=== PATIENT | male | born 1950 | race Caucasian/White ===

== ENCOUNTER → 2017-12-07 | Outpatient (CLI) | payer MEDICARE, OTHER ==
--- NOTE | 2017-12-07 14:21 | US ---
EXAMINATION TYPE: US venous doppler duplex LE BI DATE OF EXAM: 12/07/2017 1:45 PM COMPARISON: NONE CLINICAL HISTORY: I73.9 Peripheral vascular disease, unspecified. Pt states bilat leg swelling and di scoloration SIDE PERFORMED: Bilateral TECHNIQUE: The lower extremity deep venous system is examined utilizing real time linear array sonog rosina with graded compression, doppler sonography and color-flow sonography. VESSELS IMAGED: External Iliac Vein (EIV) Common Femoral Vein Deep Femoral Vein Greater Saphenous Vein * Femoral Vein Popliteal Vein Small Saphenous Vein * Proximal Calf Veins (* superficial vessels) Right Leg: Negative for DVT Left Leg: Negative for DVT IMPRESSION: No evidence for DVT at this time.
== END | disposition home or self-care (01) ==
LOC: RADUSWWP 13:20
PROVIDERS: ATTEND Family Medicine
DX: I73.9 Peripheral vascular disease, unspecified (principal); M79.89 Other specified soft tissue disorders
CPT/HCPCS: 93970

== ENCOUNTER → 2019-11-14 | Outpatient (CLI) | payer MEDICARE | END | disposition home or self-care (01) | LOC: LABWHC1 09:48 | PROVIDERS: ATTEND Family Medicine | DX: Z20.89 Contact with and (suspected) exposure to other communicable diseases (principal) | CPT/HCPCS: U0003; C9803 ==

== ENCOUNTER → 2019-12-13 | Outpatient (CLI) | payer MEDICARE | END | disposition home or self-care (01) | LOC: LABWHC1 07:26 | PROVIDERS: ATTEND Family Medicine | DX: Z11.59 Encounter for screening for other viral diseases (principal) | CPT/HCPCS: U0003; C9803 ==

== ENCOUNTER 2020-02-23 13:20 | Inpatient (IN) | payer MEDICARE ==
[2020-02-23] MEDS ORDERED: SODIUM CHLORIDE 0.9% 500 ML 500 ML IV STA (13:44)
--- NOTE | 2020-02-23 13:47 | ED ---
General Adult HPI - General Chief complaint: Abdominal Pain Stated complaint: Poss Kidney Stone Time Seen by Provider: 02/23/20 13:34 Source: patient, RN notes reviewed, old records reviewed Mode of arrival: ambulatory Limitations: no limitations - History of Present Illness Initial comments: 69-year-old male presenting for left flank pain. Pain is been ongoing for the past 3 or 4 days. He was seen by his primary care physician today, felt to have renal colic he was given intramuscular Toradol and was sent to the emergency department for evaluation. He denies hematuria or dysuria. He states he's had normal bowel movements. He denies vomiting but has had some nausea. No fever. - Related Data Home Medications Medication Instructions Recorded Confirmed Furosemide [Lasix] 40 mg PO DAILY PRN 02/23/20 02/23/20 Levothyroxine Sodium [Synthroid] 75 mcg PO DAILY 02/23/20 02/23/20 Potassium Chloride [Klor-Con 10] 10 meq PO DAILY PRN 02/23/20 02/23/20 Tamsulosin [Flomax] 0.4 mg PO DAILY 02/23/20 02/23/20 Venlafaxine HCl [Effexor] 150 mg PO BID 02/23/20 02/23/20 Warfarin [Coumadin] 5 mg PO WESA 02/23/20 02/23/20 Warfarin [Coumadin] 10 mg PO SUMOTUTHFR 02/23/20 02/23/20 amLODIPine [Norvasc] 10 mg PO DAILY 02/23/20 02/23/20 atenoloL [Atenolol] 25 mg PO HS 02/23/20 02/23/20 lisinopriL 40 mg PO DAILY 02/23/20 02/23/20 traMADol HCL 50 - 100 mg PO Q6H PRN 02/23/20 02/23/20 Allergies Allergy/AdvReac Type Severity Reaction Status Date / Time Penicillins Allergy Rash/Hives Verified 02/23/20 14:35 Review of Systems ROS Statement: Those systems with pertinent positive or pertinent negative responses have been documented in the HPI. ROS Other: All systems not noted in ROS Statement are negative. Past Medical History Past Medical History: Atrial Fibrillation, Hypertension, Thyroid Disorder History of Any Multi-Drug Resistant Organisms: None Reported Past Surgical History: Joint Replacement Past Psychological History: No Psychological Hx Reported Smoking Status: Never smoker Past Alcohol Use History: Occasional Past Drug Use History: None Reported General Exam Limitations: no limitations General appearance: alert, in no apparent distress Head exam: Present: atraumatic, normocephalic Eye exam: Present: normal appearance, PERRL ENT exam: Present: normal exam Neck exam: Present: normal inspection. Absent: tenderness, meningismus Respiratory exam: Present: normal lung sounds bilaterally. Absent: respiratory distress, wheezes Cardiovascular Exam: Present: regular rate, normal rhythm GI/Abdominal exam: Present: soft, distended, tenderness (mild left flank and left lower quadrant tenderness). Absent: guarding Extremities exam: Present: pedal edema Neurological exam: Present: alert, oriented X3 Psychiatric exam: Present: normal affect, normal mood Skin exam: Present: warm, dry, intact. Absent: cyanosis, diaphoretic Course Vital Signs 02/23/20 02/23/20 13:26 15:34 Temperature 97.4 F L Pulse Rate 87 77 Respiratory 20 18 Rate Blood Pressure 154/105 165/103 O2 Sat by Pulse 99 98 Oximetry Medical Decision Making - Medical Decision Making 69 -year-old male with left lower quadrant abdominal pain for 4 days. X-ray of the abdomen negative for obstruction or intraperitoneal free air, no abnormal calcifications. Patient has normal CBC, he has mild elevation in his creatinine 1.37 otherwise normal electrolytes and liver enzymes. CT showing an ileus and a panniculitis, with inflammation in the mesentery. I did initiate this patient on both of antibiotics. He will be admitted for IV hydration and symptom cont rol. Case discussed with Dr. Murray who will accept. - Lab Data Result diagrams: 02/23/20 13:52 02/23/20 13:52 Lab Results 02/23/20 02/23/20 02/23/20 Range/Units 13:52 13:52 13:52 WBC 5.8 (3.8-10.6) k/uL RBC 4.56 (4.30-5.90) m/uL Hgb 12.3 L (13.0-17.5) gm/dL Hct 38.9 L (39.0-53.0) % MCV 85.3 (80.0-100.0) fL MCH 27.0 (25.0-35.0) pg MCHC 31.6 (31.0-37.0) g/dL RDW 17.0 H (11.5-15.5) % Plt Count 177 (150-450) k/uL Neutrophils % 77 % Lymphocytes % 13 % Monocytes % 6 % Eosinophils % 2 % Basophils % 1 % Neutrophils # 4.5 (1.3-7.7) k/uL Lymphocytes # 0.8 L (1.0-4.8) k/uL Monocytes # 0.4 (0-1.0) k/uL Eosinophils # 0.1 (0-0.7) k/uL Basophils # 0.1 (0-0.2) k/uL Hypochromasia Moderate Anisocytosis Slight PT 19.2 H (9.0-12.0) sec INR 2.0 H (<1.2) APTT 29.7 (22.0-30.0) sec Sodium (137-145) mmol/L Potassium (3.5-5.1) mmol/L Chloride (98-107) mmol/L Carbon Dioxide (22-30) mmol/L Anion Gap mmol/L BUN (9-20) mg/dL Creatinine (0.66-1.25) mg/dL Est GFR (CKD-EPI)AfAm (>60 ml/min/1.73 sqM) Est GFR (CKD-EPI)NonAf (>60 ml/min/1.73 sqM) Glucose (74-99) mg/dL Plasma Lactic Acid Tristin (0.7-2.0) mmol/L Calcium (8.4-10.2) mg/dL Total Bilirubin (0.2-1.3) mg/dL AST (17-59) U/L ALT (4-49) U/L Alkaline Phosphatase (38-126) U/L Total Protein (6.3-8.2) g/dL Albumin (3.5-5.0) g/dL Amylase (30-110) U/L Lipase (23-300) U/L Urine Color Yellow Urine Appearance Clear (Clear) Urine pH 6.0 (5.0-8.0) Ur Specific Fajardo 1.014 (1.001-1.035) Urine Protein Trace H (Negative) Urine Glucose (UA) Negative (Negative) Urine Ketones Negative (Negative) Urine Blood Trace H (Negative) Urine Nitrite Negative (Negative) Urine Bilirubin Negative (Negative) Urine Urobilinogen <2.0 (<2.0) mg/dL Ur Leukocyte Esterase Negative (Negative) Urine RBC 2 (0-5) /hpf Urine WBC 1 (0-5) /hpf Ur Squamous Epith Cells <1 (0-4) /hpf Hyaline Casts 11 H (0-2) /lpf Urine Mucus Rare H (None) /hpf 02/23/20 02/23/20 Range/Units 13:52 13:52 WBC (3.8-10.6) k/uL RBC (4.30-5.90) m/uL Hgb (13.0-17.5) gm/dL Hct (39.0-53.0) % MCV (80.0-100.0) fL MCH (25.0-35.0) pg MCHC (31.0-37.0) g/dL RDW (11.5-15.5) % Plt Count (150-450) k/uL Neutrophils % % Lymphocytes % % Monocytes % % Eosinophils % % Basophils % % Neutrophils # (1.3-7.7) k/uL Lymphocytes # (1.0-4.8) k/uL Monocytes # (0-1.0) k/uL Eosinophils # (0-0.7) k/uL Basophils # (0-0.2) k/uL Hypochromasia Anisocytosis PT (9.0-12.0) sec INR (<1.2) APTT (22.0-30.0) sec Sodium 136 L (137-145) mmol/L Potassium 4.4 (3.5-5.1) mmol/L Chloride 106 (98-107) mmol/L Carbon Dioxide 25 (22-30) mmol/L Anion Gap 5 mmol/L BUN 29 H (9-20) mg/dL Creatinine 1.37 H (0.66-1.25) mg/dL Est GFR (CKD-EPI)AfAm 61 (>60 ml/min/1.73 sqM) Est GFR (CKD-EPI)NonAf 53 (>60 ml/min/1.73 sqM) Glucose 157 H (74-99) mg/dL Plasma Lactic Acid Tristin 1.9 (0.7-2.0) mmol/L Calcium 8.5 (8.4-10.2) mg/dL Total Bilirubin 0.5 (0.2-1.3) mg/dL AST 23 (17-59) U/L ALT 18 (4-49) U/L Alkaline Phosphatase 77 (38-126) U/L Total Protein 6.1 L (6.3-8.2) g/dL Albumin 3.4 L (3.5-5.0) g/dL Amylase 92 (30-110) U/L Lipase 336 H (23-300) U/L Urine Color Urine Appearance (Clear) Urine pH (5.0-8.0) Ur Specific F[place]ardo (1.001-1.035) Urine Protein (Negative) Urine Glucose (UA) (Negative) Urine Ketones (Negative) Urine Blood (Negative) Urine Nitrite (Negative) Urine Bilirubin (Negative) Urine Urobilinogen (<2.0) mg/dL Ur Leukocyte Esterase (Negative) Urine RBC (0-5) /hpf Urine WBC (0-5) /hpf Ur Squamous Epith Cells (0-4) /hpf Hyaline Casts (0-2) /lpf Urine Mucus (None) /hpf Disposition Clinical Impression: Ileus, Mesenteric panniculitis Disposition: ADMITTED IP TO THIS [facility] Condition: Stable Is patient prescribed a controlled substance at d/c from ED?: No Referrals: Debora Barkley MD [Primary Care Provider] - 1-2 days Decision to Admit Reason: Admit from EC Decision Date: 02/23/20 Decision Time: 16:19
[2020-02-23 14:05] LABS: Anisocytosis Slight; Basophils # (A) 0.1 k/uL (0-0.2); Basophils % (A) 1 %; Eosinophils # (A) 0.1 k/uL (0-0.7); Eosinophils % (A) 2 %; HCT 38.9 % (39.0-53.0); HGB 12.3 gm/dL (13.0-17.5); Hypochromasia Moderate; Lymphocytes # (A) 0.8 k/uL (1.0-4.8); Lymphocytes % (A) 13 %; MCHC 31.6 g/dL (31.0-37.0); MCV 85.3 fL (80.0-100.0); Mean Platelet Volume 8.5; Monocytes # (A) 0.4 k/uL (0-1.0); Monocytes % (A) 6 %; Neutrophils # (A) 4.5 k/uL (1.3-7.7); Neutrophils % (A) 77 %; Platelet Count 177 k/uL (150-450); RBC 4.56 m/uL (4.30-5.90); WBC 5.8 k/uL (3.8-10.6)
[2020-02-23 14:15] LABS: Albumin 3.4 g/dL (3.5-5.0); Appearance,Urine Clear (Clear); Bilirubin,Urine Negative (Negative); Blood,Urine Trace (Negative); Calcium 8.5 mg/dL (8.4-10.2); Color,Urine Yellow; Glucose,Urine (UA) Negative (Negative); Hyaline Casts,Urine 11 /lpf (0-2); Ketones,Urine Negative (Negative); Leukocyte Esterase,Urine Negative (Negative); Mucus,Urine Rare /hpf; Nitrite,Urine Negative (Negative); Potassium 4.4 mmol/L (3.5-5.1); Protein,Urine Trace (Negative); RBC,Urine 2 /hpf (0-5); Specific Gravity,Urine 1.014 (1.001-1.035); Squamous Epithelial Cell,Urine <1 /hpf (0-4); Total Bilirubin 0.5 mg/dL (0.2-1.3); Total Protein 6.1 g/dL (6.3-8.2); Urobilinogen,Urine <2.0 mg/dL (<2.0); WBC,Urine 1 /hpf (0-5)
[2020-02-23 14:16] LABS: Partial Thromboplastin Time 29.7 sec (22.0-30.0); Prothrombin Time 19.2 sec (9.0-12.0)
--- NOTE | 2020-02-23 14:20 | XR ---
EXAMINATION TYPE: XR KUB DATE OF EXAM: 02/23/2020 2:11 PM CLINICAL HISTORY: Left flank pain for 3 days. TECHNIQUE: Two Upright KUB images of the abdomen are obtained. COMPARISON: None. FINDINGS: Gas is seen in nondistended stomach bubble. Scattered gas is seen in non-distended small sarah wel loops. Gas and fecal material is seen in non-distended colon. Single prominent gas filled bowel s tructure in the mid abdomen. Surgical clips epigastric region and left midabdomen. Suboptimal due to large body habitus. Left basilar linear scarring and/or atelectasis. No pneumoperitoneum. Moderate ax ial joint space loss both hips. IMPRESSION: Overall nonspecific but favor nonobstructive bowel gas pattern.
--- NOTE | 2020-02-23 15:48 | CT ---
EXAMINATION TYPE: CT abdomen pelvis wo con DATE OF EXAM: 02/23/2020 HISTORY: LLQ pain CT DLP: 2693.9 mGycm. Automated Exposure Control for Dose Reduction was Utilized. TECHNIQUE: CT scan of the abdomen and pelvis is performed without oral or IV contrast. COMPARISON: Same day abdominal x-ray. FINDINGS: Within the limitations of a non-contrast study, the following observations are made. LUNG BASES: Heart size upper limits of normal. [id number] bibasilar linear scarring and/or atel ectasis LIVER/GB: No significant abnormality is appreciated. PANCREAS: No significant abnormality is seen. SPLEEN: No significant abnormality is seen. ADRENALS: Low dense thickening to both adrenal glands consistent with benign lipid rich hyperplasia a nd benign lipid rich adenoma with 1.6 cm low dense left adrenal nodule. KIDNEYS: Cortical thinning both kidneys. No calculi or hydronephrosis. Exophytic 3.3 cm thin-walled c ysts bilaterally lower pole of the right kidney BOWEL: No suspicious small or large bowel dilatation. Surgical changes from gastric bypass procedure in the epigastric region. Surgical sutures and clips noted anterior inferior to this. No suspicious s mall or large bowel dilatation. Nondigested pills in the right colon. Redundancy of the sigmoid colon . GENITAL ORGANS: Prostate gland upper limits of normal in size. LYMPH NODES: No greater than 1cm abdominal or pelvic lymph nodes are appreciated. Mild to moderate le ft mid abdominal mesenteric fat stranding with prominent but subcentimeter lymph nodes. OSSEOUS STRUCTURES: Severe multilevel spurring in the thoracic spine. Mild multilevel disc space narr owing in the lumbar spine with vacuum disc phenomenon upper to mid lumbar levels. Moderate axial join t space loss in both hips with moderate acetabular spurring. OTHER: Mild calcified plaque of the aorta extends into branch vessels. IMPRESSION: Mesenteric panniculitis ileus to BE considered as there is mild to moderate left mid abdo liset Brigid mesentery and prominent but subcentimeter mesenteric lymph nodes.
[2020-02-23] MEDS ORDERED: MORPHINE SULFATE 4 MG/ML SYRINGE IVP STA (16:15)
[2020-02-23] MEDS ORDERED: cefTRIAXone IN SWFI 1,000 MG/10 ML SYRINGE IVP STA (16:15)
[2020-02-23] MEDS ORDERED: NALOXONE 0.4 MG/ML 1 ML VIAL IV PRN (16:15)
[2020-02-23] MEDS ORDERED: metroNIDAZOLE-NS PMX 500 MG in SALINE 1 100ML.BAG IVPB STA (16:15)
[2020-02-23] MEDS ORDERED: ACETAMINOPHEN TAB 325 MG TAB PO PRN (16:15)
[2020-02-23] MEDS ORDERED: POTASSIUM CHLORIDE ER 10 MEQ TAB.ER.PRT PO PRN (17:06)
[2020-02-23] MEDS ORDERED: FUROSEMIDE 40 MG TAB PO PRN (17:06)
[2020-02-23] MEDS: SODIUM CHLORIDE 0.9% 1,000 ML IV SCH (18:05)
[2020-02-23] MEDS ORDERED: hydrALAZINE HCL 20 MG/ML 1 ML VIAL IVP PRN (19:11)
[2020-02-23] MEDS ORDERED: WARFARIN 7.5 MG TAB PO ONE (20:00)
[2020-02-23] MEDS: VENLAFAXINE HCL 75 MG TAB PO SCH (20:25)
[2020-02-23] MEDS: atenoloL 25 MG TAB PO SCH (21:13)
[2020-02-23] MEDS: MORPHINE SULFATE 4 MG/ML SYRINGE IV PRN (23:11)
[2020-02-23] MEDS: metroNIDAZOLE-NS PMX 500 MG in SALINE 1 100ML.BAG IVPB SCH (23:12)
[2020-02-24] MEDS: MORPHINE SULFATE 4 MG/ML SYRINGE IV PRN ×4 (03:49→20:24)
[2020-02-24] MEDS: LEVOTHYROXINE 75 MCG TAB PO SCH (05:20)
[2020-02-24] MEDS: SODIUM CHLORIDE 0.9% 1,000 ML IV SCH ×4 (05:20→23:36)
[2020-02-24 06:33] LABS: Anisocytosis Slight; Basophils % (A) 1 %; Eosinophils # (A) 0.2 k/uL (0-0.7); Eosinophils % (A) 3 %; HCT 40.8 % (39.0-53.0); HGB 12.1 gm/dL (13.0-17.5); Hypochromasia Marked; Lymphocytes # (A) 1.2 k/uL (1.0-4.8); Lymphocytes % (A) 20 %; MCH 25.8 pg (25.0-35.0); MCHC 29.7 g/dL (31.0-37.0); MCV 86.8 fL (80.0-100.0); Mean Platelet Volume 8.4; Monocytes # (A) 0.5 k/uL (0-1.0); Monocytes % (A) 9 %; Neutrophils # (A) 3.9 k/uL (1.3-7.7); Neutrophils % (A) 66 %; Platelet Count 204 k/uL (150-450)
[2020-02-24] MEDS: VENLAFAXINE HCL 75 MG TAB PO SCH ×2 (08:14→20:24)
[2020-02-24] MEDS: metroNIDAZOLE-NS PMX 500 MG in SALINE 1 100ML.BAG IVPB SCH ×3 (08:14→23:36)
[2020-02-24] MEDS: TAMSULOSIN 0.4 MG CAP.ER.24H PO SCH (08:15)
[2020-02-24] MEDS: lisinopriL 20 MG TAB PO SCH (08:15)
[2020-02-24] MEDS: amLODIPine 10 MG TAB PO SCH (08:15)
[2020-02-24 08:26] LABS: INR 1.6 (<1.2); Prothrombin Time 15.3 sec (9.0-12.0)
[2020-02-24 09:12] LABS: ALT 19 U/L (4-49); AST 27 U/L (17-59); African American GFR (CKD) 73 (>60 ml/min/1.73 sqM); Albumin 3.6 g/dL (3.5-5.0); Albumin/Globulin Ratio 1.3; Alkaline Phosphatase 82 U/L (38-126); Anion Gap 4 mmol/L; Blood Urea Nitrogen 25 mg/dL (9-20); Calcium 8.3 mg/dL (8.4-10.2); Carbon Dioxide 28 mmol/L (22-30); Chloride 106 mmol/L (98-107); Globulin 2.8 g/dL; Glucose 99 mg/dL (74-99); Non-African American GFR(CKD) 63 (>60 ml/min/1.73 sqM); Potassium 4.5 mmol/L (3.5-5.1); Sodium 138 mmol/L (137-145); Total Bilirubin 0.8 mg/dL (0.2-1.3); Total Protein 6.4 g/dL (6.3-8.2)
--- NOTE | 2020-02-24 12:45 | P.HPIM ---
History of Present Illness H&P Date: 02/24/20 Casey Salinas, is a 69-year-old male who presented to [facility] emergency room with a chief complaint of left sided abdominal pain patient stated that his pain started about 1 week ago in the left flank area and has been worsening and radiating to the front, he was evaluated in the emergency room, his vital examination on presentation revealed a temperature of 97.4 pulse 87 respiration 20 blood pressure 154/105 pulse ox 99% on room air his white blood count was 5.8 hemoglobin 12.3 platelet count 177 INR 2.0 sodium 136 BUN 29 creatinine 1.37 lipase was slightly elevated at 336 urine analysis revealed a trace of blood with rare mucus KUB in the emergency room revealed nonspecific abdomen, computed tomography scan of the abdomen and pelvis done in the emergency room revealed mesenteric panniculitis, with subcentimeter prominent lymph nodes and possible ileus, no evidence of kidney stones or hydronephrosis. Patient was started on IV antibiotic and was admitted to medical floor general surgery consultation was requested. Patient has a known history of hypertension, hypothyroidism, benign prostatic hypertrophy, history of atrial fibrillation maintained on Coumadin, and history of hyperlipidemia. On review of systems patient is alert and oriented 3 in no distress, he is still complaining of abdominal pain mostly in the left lower quadrant otherwise he denies any complaints there is no fever or chills no headache or dizziness, no chest pain no shortness of breath no cough no nausea or vomiting no diarrhea no blood in the stools no burning with urination no frequency or urgency and no hematuria. Past Medical History Past Medical History: Atrial Fibrillation, Hypertension, Thyroid Disorder History of Any Multi-Drug Resistant Organisms: None Reported Past Surgical History: Joint Replacement Additional Past Surgical History / Comment(s): bilateral knee replacements Past Psychological History: No Psychological Hx Reported Smoking Status: Never smoker Past Alcohol Use History: Occasional Past Drug Use History: None Reported - Past Family History Mother Family Medical History: Diabetes Mellitus Medications and Allergies Home Medications Medication Instructions Recorded Confirmed Type Furosemide [Lasix] 40 mg PO DAILY PRN 02/23/20 02/23/20 History Levothyroxine Sodium [Synthroid] 75 mcg PO DAILY 02/23/20 02/23/20 History Potassium Chloride [Klor-Con 10] 10 meq PO DAILY PRN 02/23/20 02/23/20 History Tamsulosin [Flomax] 0.4 mg PO DAILY 02/23/20 02/23/20 History Venlafaxine HCl [Effexor] 150 mg PO BID 02/23/20 02/23/20 History Warfarin [Coumadin] 5 mg PO WESA 02/23/20 02/23/20 History Warfarin [Coumadin] 10 mg PO SUMOTUTHFR 02/23/20 02/23/20 History amLODIPine [Norvasc] 10 mg PO DAILY 02/23/20 02/23/20 History atenoloL [Atenolol] 25 mg PO HS 02/23/20 02/23/20 History lisinopriL 40 mg PO DAILY 02/23/20 02/23/20 History traMADol HCL 50 - 100 mg PO Q6H PRN 02/23/20 02/23/20 History Allergies Allergy/AdvReac Type Severity Reaction Status Date / Time Penicillins Allergy Rash/Hives Verified 02/23/20 14:35 Physical Exam Vitals: Vital Signs Temp Pulse Pulse Resp BP BP Pulse Ox 02/24/20 04:55 98.2 F 59 L 18 145/83 97 02/23/20 23:43 58 L 150/90 02/23/20 21:09 97.8 F 84 18 162/100 98 02/23/20 19:41 73 163/122 98 02/23/20 18:00 97.6 F 76 19 170/124 99 02/23/20 17:08 175/96 02/23/20 15:34 77 18 165/103 98 02/23/20 13:26 97.4 F L 87 20 154/105 99 Intake and Output 02/23/20 02/24/20 02/24/20 22:59 06:59 14:59 Intake Total 600 Balance 600 Intake: Intake, IV Titration 300 Amount Sodium Chloride 0.9% 1, 300 000 ml @ 75 mls/hr IV . [id number] [facility] Rx#:[id number] Oral 300 Other: Voiding Method Toilet # Voids 1 1 1 Weight 154.221 kg In general patient is alert and oriented 3 in no distress HEENT head normocephalic and atraumatic Neck is supple no JVD no goiter no lymphadenopathy Chest exam reveals a few scattered rhonchi no wheezing Cardiac exam reveals regular heart sounds S1 and S2 no gallops no murmurs Abdomen is soft with tenderness in the left lower quadrant no rigidity or rebound no organomegaly with normal bowel sounds Extremity exam reveals no edema no cyanosis or clubbing Neurological examination reveals no gross focal deficit Results CBC & Chem 7: 02/24/20 06:03 02/24/20 06:03 Labs: Abnormal Lab Results - Last 24 Hours (Table) 02/23/20 02/23/20 02/23/20 Range/Units 13:52 13:52 13:52 Hgb 12.3 L (13.0-17.5) gm/dL Hct 38.9 L (39.0-53.0) % MCHC (31.0-37.0) g/dL RDW 17.0 H (11.5-15.5) % Lymphocytes # 0.8 L (1.0-4.8) k/uL PT 19.2 H (9.0-12.0) sec INR 2.0 H (<1.2) Sodium (137-145) mmol/L BUN (9-20) mg/dL Creatinine (0.66-1.25) mg/dL Glucose (74-99) mg/dL Calcium (8.4-10.2) mg/dL Total Protein (6.3-8.2) g/dL Albumin (3.5-5.0) g/dL Lipase (23-300) U/L Urine Protein Trace H (Negative) Urine Blood Trace H (Negative) Hyaline Casts 11 H (0-2) /lpf Urine Mucus Rare H (None) /hpf 02/23/20 02/24/20 02/24/20 Range/Units 13:52 06:03 06:03 Hgb 12.1 L (13.0-17.5) gm/dL Hct (39.0-53.0) % MCHC 29.7 L (31.0-37.0) g/dL RDW 17.0 H (11.5-15.5) % Lymphocytes # (1.0-4.8) k/uL PT (9.0-12.0) sec INR (<1.2) Sodium 136 L (137-145) mmol/L BUN 29 H 25 H (9-20) mg/dL Creatinine 1.37 H (0.66-1.25) mg/dL Glucose 157 H (74-99) mg/dL Calcium 8.3 L (8.4-10.2) mg/dL Total Protein 6.1 L (6.3-8.2) g/dL Albumin 3.4 L (3.5-5.0) g/dL Lipase 336 H (23-300) U/L Urine Protein (Negative) Urine Blood (Negative) Hyaline Casts (0-2) /lpf Urine Mucus (None) /hpf 02/24/20 Range/Units 06:03 Hgb (13.0-17.5) gm/dL Hct (39.0-53.0) % MCHC (31.0-37.0) g/dL RDW (11.5-15.5) % Lymphocytes # (1.0-4.8) k/uL PT 15.3 H (9.0-12.0) sec INR 1.6 H (<1.2) Sodium (137-145) mmol/L BUN (9-20) mg/dL Creatinine (0.66-1.25) mg/dL Glucose (74-99) mg/dL Calcium (8.4-10.2) mg/dL Total Protein (6.3-8.2) g/dL Albumin (3.5-5.0) g/dL Lipase (23-300) U/L Urine Protein (Negative) Urine Blood (Negative) Hyaline Casts (0-2) /lpf Urine Mucus (None) /hpf Thrombosis Risk Factor Assmnt - Choose All That Apply Each Factor Represents 1 point: Obesity (BMI >25) Thrombosis Risk Factor Assessment Total Risk Factor Score: 1 Thrombosis Risk Factor Assessment Level: Low Risk Assessment and Plan Plan: Left lower quadrant abdominal pain Dehydration with acute kidney injury Abnormal computed tomography scan of the abdomen revealing mesenteric p anniculitis with prominent mesenteric lymph nodes and possible ileus, awaiting surgical opinion Pain in the left flank area will check ultrasound of the kidneys Underlying history of atrial fibrillation maintained on Coumadin continue Underlying history of hypertension Underlying history of hyperlipidemia Medications reviewed and reordered Will check kidney ultrasound Awaiting surgical opinion Will follow closely
--- NOTE | 2020-02-24 13:37 | US ---
EXAMINATION TYPE: US kidneys/renal and bladder DATE OF EXAM: 02/24/2020 COMPARISON: CT yesterday CLINICAL HISTORY: left flank pain. EXAM MEASUREMENTS: Right Kidney: 14.2 x 6.7 x 6.8 cm Left Kidney: 13.0 x 5.8 x 6.3 cm Right Kidney: 3.7 x 3.4 x 3.7 cm lower pole cyst Left Kidney: No hydronephrosis or masses seen Bladder: wnl Bilateral Jets seen: No There is no evidence for hydronephrosis at this point in time. No nephrolithiasis is seen. Confirmat ion of 3.7 cm exophytic thin-walled cyst lower pole right kidney. The urinary bladder is not greatly visualized on images saved. IMPRESSION: No hydronephrosis noted bilaterally.
--- NOTE | 2020-02-24 14:40 | P.GSCN ---
History of Present Illness Consult date: 02/24/20 History of present illness: CHIEF COMPLAINT: Abdominal pain HISTORY OF PRESENT ILLNESS: The patient is a 69 year old male who comes in abdominal pain in the left lower quadrant. His pain was acute and sharp radiating from the lower back on presentation. Today he reports his pain is moderate and aching at the left lower quadrant. He reports blood in his stools. He has history of polyps. Last colonoscopy over 5 years ago. He denies any right lower quadrant abdominal pain. He has history of gastric bypass surgery in which highest weight was 360 pounds. He comes in 340 pounds. He has regained practically all of his weight after losing 100+ pounds over 10+ years ago. He reports dumping syndrome. He does not follow up with a bariatric provider. General surgery is consulted for his abdominal pain. PAST MEDICAL HISTORY: See list and reviewed PAST SURGICAL HISTORY: See list and reviewed MEDICATIONS: See list and reviewed ALLERGIES: See list and reviewed SOCIAL HISTORY: See list and reviewed FAMILY HISTORY: See list and reviewed REVIEW OF ORGAN SYSTEMS: CONSTITUTIONAL: No fevers or chills. No recent weight loss. Past gastric bypass EYES: Denies any trouble with vision. No glasses. HEENT: No difficulties with hearing. No nosebleeds. No difficulty swallowing. RESPIRATORY: Denies pneumonia. Denies any troubles with breathing or dyspnea on exertion. CARDIOVASCULAR: Denies any recent heart attacks. Has hypertensive heart disease. Has atrial fibrillation. GASTROINTESTINAL: Denies fatty food intolerance. Has change in bowel habits and gas bloat. GENITOURINARY: History of prostate disorder. NEUROLOGICAL: Denies any numbness or tingling along the distal extremities. No seizure disorders or headaches. MUSCULOSKELETAL: Has back pain, stiffness or joint arthritis. SKIN: No current skin cancer. No rash. PSYCHIATRIC: Denies suicidal thoughts. Has depressive disorder. ENDOCRINE: Has thyroid disorders. Denies any blood sugar glucose intolerance. HEME/LYMPHATIC: Denies any lumps and bumps around the neck. No recent deep venous thrombosis. On chronic anticoagulation. ALLERGY/IMMUNOLOGY: No immunoglobulin therapy. No immune deficiencies. BREAST: Denies current breast lumps, pain or nipple discharge. PHYSICAL EXAM: VITALS: Reviewed CONSTITUTIONAL: Well developed and in no acute distress. EYES: Conjuctivae without sclera icterus. Extraocular movements grossly intact. HEAD, EARS, NOSE, THROAT: Moist buccal mucosa. Head is atraumatic, normocephalic. Hears conversational speech. No nasal drainage. NECK: Supple. No JV distention. No thyroidomegaly. RESPIRATORY: Non-labored respirations and equal bilateral excursions. No gross wheezes. CARDIOVASCULAR: Palpable 2+ radial pulses. Irregular rate. Irregular rhythm. ABDOMEN: Soft. Non-tender. Nondistended. Protuberant. No incisional hernia. Well healed upper midline incision. LYMPH: No neck lymphadenopathy. MUSCULOSKELETAL: Nail and fingers with good capillary refill. SKIN: Warm and well perfused with good skin turgor. NEUROLOGIC: Cranial nerves II through XII grossly intact. Sensation upper and extremities intact. No focal or lateralizing signs. PSYCH: Appropriate affect. Alert and oriented to person, place and time. Displays appropriate insight. CLINCAL LABS: Reviewed. WBC normal at 6.0. Hemoglobin was 12.0. INR down to 2.0-1.6. Creatinine elevated 1.37 down to 1.19. IMAGING: CT of the abdomen and pelvis independent review demonstrates postsurgical changes along the superior portion of the stomach suspicious for gastric surgery. Gallbladder present. Diminutive left kidney consistent with medical related kidney disease. Cystic lesion along right inferior pole of kidney. Diffuse stool burden throughout the colon. No features of colitis. This is my independent interpretation. Images also reviewed with patient. RADIOLOGY: Report reviewed. CT of the abdomen and pelvis demonstrates right lower quadrant mesenteric panniculitis. ASSESSMENT: 1. Abdominal pain, left lower quadrant 2. Mesenteric panniculitis 3. History of gastric bypass 4. Hematochezia 5. Personal history of colon polyps 6, Macro- and micronutrient deficiencies secondary to gastric bypass PLAN: 1. Recommend IV fluid hydration including IV antibiotics and mesenteric panniculitis 2. He reports blood in stools including left lower quadrant pain. Recommend bowel prep with colonoscopy while inpatient. 3. Hold anticoagulant for bleeding. 4. Recommend bariatric labs for history of gastric bypass and symptoms. Thank you for this kind consultation. Past Medical History Past Medical History: Atrial Fibrillation, Hypertension, Thyroid Disorder History of Any Multi-Drug Resistant Organisms: None Reported Past Surgical History: Joint Replacement Additional Past Surgical History / Comment(s): bilateral knee replacements Past Psychological History: No Psychological Hx Reported Smoking Status: Never smoker Past Alcohol Use History: Occasional Past Drug Use History: None Reported - Past Family History Mother Family Medical History: Diabetes Mellitus Medications and Allergies Home Medications Medication Instructions Recorded Confirmed Type Furosemide [Lasix] 40 mg PO DAILY PRN 02/23/20 02/23/20 History Levothyroxine Sodium [Synthroid] 75 mcg PO DAILY 02/23/20 02/23/20 History Potassium Chloride [Klor-Con 10] 10 meq PO DAILY PRN 02/23/20 02/23/20 History Tamsulosin [Flomax] 0.4 mg PO DAILY 02/23/20 02/23/20 History Venlafaxine HCl [Effexor] 150 mg PO BID 02/23/20 02/23/20 History Warfarin [Coumadin] 5 mg PO WESA 02/23/20 02/23/20 History Warfarin [Coumadin] 10 mg PO SUMOTUTHFR 02/23/20 02/23/20 History amLODIPine [Norvasc] 10 mg PO DAILY 02/23/20 02/23/20 History atenoloL [Atenolol] 25 mg PO HS 02/23/20 02/23/20 History lisinopriL 40 mg PO DAILY 02/23/20 02/23/20 History traMADol HCL 50 - 100 mg PO Q6H PRN 02/23/20 02/23/20 History Allergies Allergy/AdvReac Type Severity Reaction Status Date / Time Penicillins Allergy Rash/Hives Verified 02/23/20 14:35 Surgical - Exam Vital Signs Temp Pulse Resp BP Pulse Ox 97.4 F L 87 20 154/105 99 02/23/20 13:26 02/23/20 13:26 02/23/20 13:26 02/23/20 13:26 02/23/20 13:26 Results - Labs 02/24/20 06:03 02/24/20 06:03 Abnormal Lab Results - Last 24 Hours (Table) 02/23/20 02/23/20 02/23/20 Range/Units 13:52 13:52 13:52 Hgb 12.3 L (13.0-17.5) gm/dL Hct 38.9 L (39.0-53.0) % MCHC (31.0-37.0) g/dL RDW 17.0 H (11.5-15.5) % Lymphocytes # 0.8 L (1.0-4.8) k/uL PT 19.2 H (9.0-12.0) sec INR 2.0 H (<1.2) Sodium (137-145) mmol/L BUN (9-20) mg/dL Creatinine (0.66-1.25) mg/dL Glucose (74-99) mg/dL Calcium (8.4-10.2) mg/dL Total Protein (6.3-8.2) g/dL Albumin (3.5-5.0) g/dL Lipase (23-300) U/L Urine Protein Trace H (Negative) Urine Blood Trace H (Negative) Hyaline Casts 11 H (0-2) /lpf Urine Mucus Rare H (None) /hpf 02/23/20 02/24/20 02/24/20 Range/Units 13:52 06:03 06:03 Hgb 12.1 L (13.0-17.5) gm/dL Hct (39.0-53.0) % MCHC 29.7 L (31.0-37.0) g/dL RDW 17.0 H (11.5-15.5) % Lymphocytes # (1.0-4.8) k/uL PT (9.0-12.0) sec INR (<1.2) Sodium 136 L (137-145) mmol/L BUN 29 H 25 H (9-20) mg/dL Creatinine 1.37 H (0.66-1.25) mg/dL Glucose 157 H (74-99) mg/dL Calcium 8.3 L (8.4-10.2) mg/dL Total Protein 6.1 L (6.3-8.2) g/dL Albumin 3.4 L (3.5-5.0) g/dL Lipase 336 H (23-300) U/L Urine Protein (Negative) Urine Blood (Negative) Hyaline Casts (0-2) /lpf Urine Mucus (None) /hpf 02/24/20 Range/Units 06:03 Hgb (13.0-17.5) gm/dL Hct (39.0-53.0) % MCHC (31.0-37.0) g/dL RDW (11.5-15.5) % Lymphocytes # (1.0-4.8) k/uL PT 15.3 H (9.0-12.0) sec INR 1.6 H (<1.2) Sodium (137-145) mmol/L BUN (9-20) mg/dL Creatinine (0.66-1.25) mg/dL Glucose (74-99) mg/dL Calcium (8.4-10.2) mg/dL Total Protein (6.3-8.2) g/dL Albumin (3.5-5.0) g/dL Lipase (23-300) U/L Urine Protein (Negative) Urine Blood (Negative) Hyaline Casts (0-2) /lpf Urine Mucus (None) /hpf Diabetes panel 02/23/20 02/24/20 Range/Units 13:52 06:03 Sodium 136 L 138 (137-145) mmol/L Potassium 4.4 4.5 (3.5-5.1) mmol/L Chloride 106 106 (98-107) mmol/L Carbon Dioxide 25 28 (22-30) mmol/L BUN 29 H 25 H (9-20) mg/dL Creatinine 1.37 H 1.19 (0.66-1.25) mg/dL Glucose 157 H 99 (74-99) mg/dL Calcium 8.5 8.3 L (8.4-10.2) mg/dL AST 23 27 (17-59) U/L ALT 18 19 (4-49) U/L Alkaline Phosphatase 77 82 (38-126) U/L Total Protein 6.1 L 6.4 (6.3-8.2) g/dL Albumin 3.4 L 3.6 (3.5-5.0) g/dL Calcium panel 02/23/20 02/24/20 Range/Units 13:52 06:03 Calcium 8.5 8.3 L (8.4-10.2) mg/dL Albumin 3.4 L 3.6 (3.5-5.0) g/dL Pituitary panel 02/23/20 02/24/20 Range/Units 13:52 06:03 Sodium 136 L 138 (137-145) mmol/L Potassium 4.4 4.5 (3.5-5.1) mmol/L Chloride 106 106 (98-107) mmol/L Carbon Dioxide 25 28 (22-30) mmol/L BUN 29 H 25 H (9-20) mg/dL Creatinine 1.37 H 1.19 (0.66-1.25) mg/dL Glucose 157 H 99 (74-99) mg/dL Calcium 8.5 8.3 L (8.4-10.2) mg/dL Adrenal panel 02/23/20 02/24/20 Range/Units 13:52 06:03 Sodium 136 L 138 (137-145) mmol/L Potassium 4.4 4.5 (3.5-5.1) mmol/L Chloride 106 106 (98-107) mmol/L Carbon Dioxide 25 28 (22-30) mmol/L BUN 29 H 25 H (9-20) mg/dL Creatinine 1.37 H 1.19 (0.66-1.25) mg/dL Glucose 157 H 99 (74-99) mg/dL Calcium 8.5 8.3 L (8.4-10.2) mg/dL Total Bilirubin 0.5 0.8 (0.2-1.3) mg/dL AST 23 27 (17-59) U/L ALT 18 19 (4-49) U/L Alkaline Phosphatase 77 82 (38-126) U/L Total Protein 6.1 L 6.4 (6.3-8.2) g/dL Albumin 3.4 L 3.6 (3.5-5.0) g/dL Assessment and Plan (1) H/O gastric bypass Current Visit: Yes Status: Acute Code(s): Z98.84 - BARIATRIC SURGERY STATUS SNOMED Code(s): 343266629 (2) Rectal bleeding Current Visit: Yes Status: Acute Code(s): K62.5 - HEMORRHAGE OF ANUS AND RECTUM SNOMED Code(s): 81097172 (3) Nutritional deficiency Current Visit: Yes Status: Acute Code(s): E63.9 - NUTRITIONAL DEFICIENCY, UNSPECIFIED SNOMED Code(s): 36006296 (4) Morbid obesity due to excess calories Current Visit: Yes Status: Acute Code(s): E66.01 - MORBID (SEVERE) OBESITY DUE TO EXCESS CALORIES SNOMED Code(s): 056767534 (5) BMI 40.0-44.9, adult Current Visit: Yes Status: Acute Code(s): Z68.41 - BODY MASS INDEX [BMI]40.0-44.9, ADULT SNOMED Code(s): 400586426 (6) Left lower quadrant abdominal pain Current Visit: Yes Status: Acute Code(s): R10.32 - LEFT LOWER QUADRANT PAIN SNOMED Code(s): 779965025 (7) Mesenteric panniculitis Current Visit: Yes Status: Acute Code(s): K65.4 - SCLEROSING MESENTERITIS SNOMED Code(s): 6355821510982744
[2020-02-24] MEDS ORDERED: DOCUSATE 100 MG CAP PO STA (14:42)
[2020-02-24] MEDS ORDERED: LACTULOSE 20 GM/30 ML CUP PO ONE (14:42)
[2020-02-24] MEDS ORDERED: MAGNESIUM HYDROXIDE 2,400 MG/10 ML CUP PO PRN (14:42)
[2020-02-24] MEDS ORDERED: WARFARIN 5 MG TAB PO ONE (18:00)
[2020-02-24] MEDS: atenoloL 25 MG TAB PO SCH (20:24)
[2020-02-25] MEDS: MORPHINE SULFATE 4 MG/ML SYRINGE IV PRN ×4 (00:22→14:59)
[2020-02-25] MEDS: LEVOTHYROXINE 75 MCG TAB PO SCH ×2 (05:12→23:44)
[2020-02-25] MEDS ORDERED: POLYETHYLENE GLYCOL LYTES SOLN 4,000 ML SOLN.RECON PO ONE (06:00)
[2020-02-25 06:36] LABS: Anisocytosis Slight; Basophils % (A) 1 %; Eosinophils # (A) 0.2 k/uL (0-0.7); Eosinophils % (A) 3 %; HCT 37.1 % (39.0-53.0); HGB 11.3 gm/dL (13.0-17.5); Hypochromasia Marked; Lymphocytes # (A) 0.9 k/uL (1.0-4.8); Lymphocytes % (A) 19 %; MCH 26.2 pg (25.0-35.0); MCHC 30.4 g/dL (31.0-37.0); MCV 86.1 fL (80.0-100.0); Mean Platelet Volume 8.5; Monocytes # (A) 0.4 k/uL (0-1.0); Monocytes % (A) 9 %; Neutrophils # (A) 3.2 k/uL (1.3-7.7); Neutrophils % (A) 67 %; Platelet Count 183 k/uL (150-450); RBC 4.31 m/uL (4.30-5.90); RDW 16.9 % (11.5-15.5); WBC 4.8 k/uL (3.8-10.6)
[2020-02-25] MEDS: VENLAFAXINE HCL 75 MG TAB PO SCH ×2 (09:21→21:06)
[2020-02-25] MEDS: lisinopriL 20 MG TAB PO SCH (09:21)
[2020-02-25] MEDS: TAMSULOSIN 0.4 MG CAP.ER.24H PO SCH (09:21)
[2020-02-25] MEDS: amLODIPine 10 MG TAB PO SCH (09:21)
[2020-02-25] MEDS: metroNIDAZOLE-NS PMX 500 MG in SALINE 1 100ML.BAG IVPB SCH ×3 (09:22→23:41)
[2020-02-25 10:22] LABS: % Iron Saturation 10.83 (15.00-50.00); African American GFR (CKD) 72.1 (60.0-200.0); Albumin 3.6 g/dL (3.80-4.90); Albumin/Globulin Ratio 1.71 (1.60-3.17); Anion Gap 5.9 mmol/L (4.00-12.00); BUN/Creat Ratio 16.67 Ratio (12.00-20.00); Calcium 8.1 mg/dL (8.7-10.3); Carbon Dioxide 26.1 mmol/L (21.6-31.8); Chol/HDL Ratio 4.63; Globulin 2.1 g/dL (1.6-3.3); LDL Cholesterol,Calculated 96.8 mg/dL (0.0-131.0); Non-African American GFR(CKD) 62.2 (60.0-200.0); Phosphorus 3.6 mg/dL (2.4-5.1); Total Bilirubin 0.5 mg/dL (0.3-1.2); Total Protein 5.7 g/dL (6.2-8.2); VLDL Calculation 19.2 mg/dL (5.00-40.00)
[2020-02-25 10:32] LABS: Folate, Serum 13.2 ng/mL
[2020-02-25 10:36] LABS: INR 1.64 (0.90-1.11); Prothrombin Time 17.2 sec (9.9-11.9)
--- NOTE | 2020-02-25 11:16 | P.PN ---
Subjective Progress Note Date: 02/25/20 Casey Salinas, is a 69-year-old male who presented to [facility] emergency room with a chief complaint of left sided abdominal pain patient stated that his pain started about 1 week ago in the left flank area and has been worsening and radiating to the front, he was evaluated in the emergency room, his vital examination on presentation revealed a temperature of 97.4 pulse 87 respiration 20 blood pressure 154/105 pulse ox 99% on room air his white blood count was 5.8 hemoglobin 12.3 platelet count 177 INR 2.0 sodium 136 BUN 29 creatinine 1.37 lipase was slightly elevated at 336 urine analysis revealed a trace of blood with rare mucus KUB in the emergency room revealed nonspecific abdomen, computed tomography scan of the abdomen and pelvis done in the emergency room revealed mesenteric panniculitis, with subcentimeter prominent lymph nodes and possible ileus, no evidence of kidney stones or hydronephrosis. Patient was started on IV antibiotic and was admitted to medical floor general surgery consultation was requested. Patient has a known history of hypertension, hypothyroidism, benign prostatic hypertrophy, history of atrial fibrillation maintained on Coumadin, and history of hyperlipidemia. On review of systems patient is alert and oriented 3 in no distress, he is still complaining of abdominal pain mostly in the left lower quadrant otherwise he denies any complaints there is no fever or chills no headache or dizziness, no chest pain no shortness of breath no cough no nausea or vomiting no diarrhea no blood in the stools no burning with urination no frequency or urgency and no hematuria. On 02/25/2020 patient is alert and oriented 3. Plans for colonoscopy tomorrow per Dr. Dillard due to blood in stool. Patient is currently with colon prep. Hemoglobin 11.4. At this time patient denies chest pain or shortness of breath. Patient does still report some left lower quadrant abdominal discomfort. Patient denies any nausea or vomiting. Patient denies any urinary burning or frequency Objective - Vital Signs Vital signs: Vital Signs Temp 97.4 F L 02/25/20 05:00 Pulse 70 02/25/20 05:00 Resp 18 02/25/20 05:00 BP 129/75 02/25/20 05:00 Pulse Ox 94 L 02/25/20 05:00 Intake & Output 10/31/20 11/01/20 11/01/20 19:59 06:59 18:59 Intake Total Balance Intake: Intake, IV Titration Amount Sodium Chloride 0.9% 1, 000 ml @ 75 mls/hr IV . [id number] [facility] Rx#:[id number] metroNIDAZOLE-NS PMX 500 mg In Saline 1 100ml.bag @ 100 mls/hr IVPB Q8HR [facility] Rx#:[id number] Oral Other: Voiding Method # Voids - Exam In general patient is alert and oriented 3 in no distress HEENT head normocephalic and atraumatic Neck is supple no JVD no goiter no lymphadenopathy Chest exam reveals a few scattered rhonchi no wheezing Cardiac exam reveals regular heart sounds S1 and S2 no gallops no murmurs Abdomen is soft with tenderness in the left lower quadrant no rigidity or rebound no organomegaly with normal bowel sounds Extremity exam reveals no edema no cyanosis or clubbing Neurological examination reveals no gross focal deficit - Labs CBC & Chem 7: 02/25/20 05:50 02/25/20 05:50 Labs: Abnormal Lab Results - Last 24 Hours (Table) 02/24/20 02/24/20 02/25/20 Range/Units 06:03 06:03 05:50 Hgb 11.3 L (13.0-17.5) gm/dL Hct 37.1 L (39.0-53.0) % MCHC 30.4 L (31.0-37.0) g/dL RDW 16.9 H (11.5-15.5) % Lymphocytes # 0.9 L (1.0-4.8) k/uL PT 15.3 H (9.0-12.0) sec INR 1.6 H (<1.2) BUN 25 H (9-20) mg/dL Calcium 8.3 L (8.4-10.2) mg/dL Assessment and Plan Plan: Left lower quadrant abdominal pain with blood in stool. Plans for colonoscopy per surgical services on 02/26/2020 Dehydration with acute kidney injury. Resolved Abnormal computed tomography scan of the abdomen revealing mesenteric panniculitis with prominent mesenteric lymph nodes and possible ileus, awaiting surgical opinion Pain in the left flank area will check ultrasound of the kidneys. Ultrasound of kidneys completed showing no hydronephrosis noted bilaterally. Underlying history of atrial fibrillation maintained on Coumadin continue. Coumadin on hold for colonoscopy tomorrow Underlying history of hypertension Underlying history of hyperlipidemia DVT prophylaxis SCDs, Coumadin on hold for colonoscopy GI prophylaxis Protonix Flagyl for IV antibiotics Surgical service is following Plans for colonoscopy 02/26/2020
[2020-02-25 12:52] LABS: Hemoglobin A1C 5.9 % (4.0-6.0)
--- NOTE | 2020-02-25 16:50 | P.PN ---
Subjective Progress Note Date: 02/25/20 CHIEF COMPLAINT: Abdominal pain HISTORY OF PRESENT ILLNESS: The patient is a 69 year old male with previous history of gastric bypass had been lost to follow-up presented with left lower quadrant abdominal pain. He reports it started as left lower back pain. Patient reports having blood in stools and he is on anticoagulant. Anticoagulant discontinued. Patient is overdue for colonoscopy as well. He has personal history of colon polyps. He reports his bowel prep is almost clear. He does report that his pain is worst with elevating from the bed starting from his back. He also has a family history of kidney stones. His left lower quadrant down pain has not improved despite his bowel prep. REVIEW OF ORGAN SYSTEMS: No fevers or chills. No nausea or vomiting. PHYSICAL EXAM: VITALS: Reviewed CONSTITUTIONAL: Well developed and in no acute distress. EYES: Conjuctivae without sclera icterus. Extraocular movements grossly intact. HEAD, EARS, NOSE, THROAT: Moist buccal mucosa. Head is atraumatic, normocephalic. Hears conversational speech. No nasal drainage. NECK: No JV distention. RESPIRATORY: Non-labored respirations and equal bilateral excursions. No gross wheezes. CARDIOVASCULAR: Palpable 2+ radial pulses. Irregular rate. Irregular rhythm. ABDOMEN: Soft. Non-tender. Nondistended. Protuberant. No incisional hernia. Well healed upper midline incision. LYMPH: No neck lymphadenopathy. MUSCULOSKELETAL: Nail and fingers with good capillary refill. SKIN: Warm and well perfused with good skin turgor. NEUROLOGIC: Cranial nerves II through XII grossly intact. Sensation upper and extremities intact. No focal or lateralizing signs. PSYCH: Appropriate affect. Alert and oriented to person, place and time. Displays appropriate insight. CLINCAL LABS: Reviewed. WBC normal at 6.0. Hemoglobin was 12.0, now 11.3. INR down to 2.0-1.6, elevated 1.64. Iron and ferritin low. TSH between 3-4. ASSESSMENT: 1. Abdominal pain, left lower quadrant 2. Mesenteric panniculitis 3. History of gastric bypass 4. Hematochezia 5. Personal history of colon polyps 6. Macro- and micronutrient deficiencies secondary to gastric bypass 7. Iron deficiency anemia 8. Hypothyroidism 9. Lower back pain PLAN: 1. Continue bowel prep. 2. Recommend colonoscopy. He is elevated risk due to recent Coumadin therapy. Risks include colonoscopy only without polypectomy described as patient's INR still mildly elevated at 1.64. 3. As his pain is related to his back, may benefit from orthopedic consultation Objective - Vital Signs Vital signs: Vital Signs Temp 97.4 F L 02/25/20 05:00 Pulse 70 02/25/20 05:00 Resp 18 02/25/20 05:00 BP 129/75 02/25/20 05:00 Pulse Ox 94 L 02/25/20 05:00 Intake & Output 02/24/20 02/25/20 02/25/20 19:59 06:59 18:59 Intake Total Balance Intake: Intake, IV Titration Amount Sodium Chloride 0.9% 1, 000 ml @ 75 mls/hr IV . [id number] [facility] Rx#:[id number] metroNIDAZOLE-NS PMX 500 mg In Saline 1 100ml.bag @ 100 mls/hr IVPB Q8HR [facility] Rx#:[id number] Oral Other: Voiding Method # Voids - Labs CBC & Chem 7: 02/25/20 05:50 02/25/20 05:50 Labs: Abnormal Lab Results - Last 24 Hours (Table) 02/25/20 02/25/20 02/25/20 Range/Units 05:50 05:50 05:50 Hgb 11.3 L (13.0-17.5) gm/dL Hct 37.1 L (39.0-53.0) % MCHC 30.4 L (31.0-37.0) g/dL RDW 16.9 H (11.5-15.5) % Lymphocytes # 0.9 L (1.0-4.8) k/uL PT 17.2 H (9.9-11.9) sec INR 1.64 H (0.90-1.11) Calcium 8.1 L (8.7-10.3) mg/dL Iron 38 L (65-175) ug/dL % Saturation 10.83 L (15.00-50.00) Total Protein 5.7 L (6.2-8.2) g/dL Albumin 3.60 L (3.80-4.90) g/dL HDL Cholesterol 32.0 L (40.0-60.0) mg/dL Vitamin D 25-Hydroxy 16.1 L (30.0-100.0) ng/mL Assessment and Plan (1) H/O gastric bypass Current Visit: Yes Status: Acute Code(s): Z98.84 - BARIATRIC SURGERY STATUS SNOMED Code(s): 612066476 (2) Rectal bleeding Current Visit: Yes Status: Acute Code(s): K62.5 - HEMORRHAGE OF ANUS AND RECTUM SNOMED Code(s): 00869243 (3) Nutritional deficiency Current Visit: Yes Status: Acute Code(s): E63.9 - NUTRITIONAL DEFICIENCY, UNSPECIFIED SNOMED Code(s): 06184611 (4) Morbid obesity due to excess calories Current Visit: Yes Status: Acute Code(s): E66.01 - MORBID (SEVERE) OBESITY DUE TO EXCESS CALORIES SNOMED Code(s): 629872058 (5) BMI 40.0-44.9, adult Current Visit: Yes Status: Acute Code(s): Z68.41 - BODY MASS INDEX [BMI]40 .0-44.9, ADULT SNOMED Code(s): 407570069 (6) Left lower quadrant abdominal pain Current Visit: Yes Status: Acute Code(s): R10.32 - LEFT LOWER QUADRANT PAIN SNOMED Code(s): 197840467 (7) Mesenteric panniculitis Current Visit: Yes Status: Acute Code(s): K65.4 - SCLEROSING MESENTERITIS SNOMED Code(s): 7185506773013747
[2020-02-25] MEDS ORDERED: SODIUM CHLORIDE 0.9% 1,000 ML IV ONE (16:53)
[2020-02-25] MEDS: SODIUM CHLORIDE 0.9% 1,000 ML IV SCH (21:06)
[2020-02-25] MEDS: atenoloL 25 MG TAB PO SCH (21:06)
[2020-02-26 06:10] LABS: Anisocytosis Slight; Basophils # (A) 0.1 k/uL (0-0.2); Basophils % (A) 1 %; Eosinophils # (A) 0.2 k/uL (0-0.7); Eosinophils % (A) 3 %; HCT 36.3 % (39.0-53.0); HGB 11.2 gm/dL (13.0-17.5); Hypochromasia Moderate; Lymphocytes # (A) 0.6 k/uL (1.0-4.8); Lymphocytes % (A) 13 %; MCH 26.5 pg (25.0-35.0); MCHC 30.9 g/dL (31.0-37.0); MCV 85.8 fL (80.0-100.0); Mean Platelet Volume 8.4; Monocytes # (A) 0.5 k/uL (0-1.0); Monocytes % (A) 10 %; Neutrophils # (A) 3.4 k/uL (1.3-7.7); Neutrophils % (A) 70 %; Platelet Count 158 k/uL (150-450); RBC 4.23 m/uL (4.30-5.90); RDW 17.2 % (11.5-15.5); WBC 4.8 k/uL (3.8-10.6)
[2020-02-26] MEDS: metroNIDAZOLE-NS PMX 500 MG in SALINE 1 100ML.BAG IVPB SCH ×3 (09:14→23:55)
[2020-02-26 09:15] LABS: African American GFR (CKD) 80.1 (60.0-200.0); Albumin 3.5 g/dL (3.80-4.90); Albumin/Globulin Ratio 1.67 (1.60-3.17); Anion Gap 6.3 mmol/L (4.00-12.00); BUN/Creat Ratio 11.82 Ratio (12.00-20.00); Calcium 8.1 mg/dL (8.7-10.3); Carbon Dioxide 26.7 mmol/L (21.6-31.8); Globulin 2.1 g/dL (1.6-3.3); Non-African American GFR(CKD) 69.1 (60.0-200.0); Potassium 3.9 mmol/L (3.5-5.5); Total Bilirubin 0.7 mg/dL (0.3-1.2); Total Protein 5.6 g/dL (6.2-8.2)
[2020-02-26] MEDS: VENLAFAXINE HCL 75 MG TAB PO SCH ×2 (09:15→20:05)
[2020-02-26] MEDS: amLODIPine 10 MG TAB PO SCH (09:15)
[2020-02-26] MEDS: TAMSULOSIN 0.4 MG CAP.ER.24H PO SCH (09:15)
[2020-02-26] MEDS: PANTOPRAZOLE 40 MG/10 ML VIAL IVP SCH (09:15)
[2020-02-26] MEDS: lisinopriL 20 MG TAB PO SCH (09:16)
[2020-02-26 09:17] LABS: INR 1.8 (0.90-1.11); Prothrombin Time 18.8 sec (9.9-11.9)
--- NOTE | 2020-02-26 13:30 | P.CNOR ---
History of Present Illness - [facility] Consult date: 02/26/20 Requesting physician: Adele De Los Santos Consult reason: low back pain History of present illness: Patient is a very pleasant 69-year-old male who is seen and bedside for further evaluation regards to his lumbar spine after consultation has been placed by general surgery for further evaluation. Patient states he has been experiencing left-sided low back pain that radiates around the side towards the left lower abdomen and groin area over the past week. He denies specific injury but states he had been [place] of the river. He does feel his pain is steadily improving. He states prior to this he has never had any difficulties with his lumbar spine. He does not have pain at the midline of the lumbar spine. He denies any specific lower extremity weakness or radiculopathy bilaterally. He does feel if he is cleared for general surgery standpoint he would be ready for discharged home today. He is planning to travel to [place] this coming , 02/29/2020, and will plan to remain in [place] until the spring. Patient does have some trophic skin changes bilateral lower extremities with a healing wound over the left skelton. He denies diabetes. He has been undergoing bowel prep and is currently scheduled to undergo colonoscopy this morning. Patient does have a history of gastric bypass. He has been experiencing left lower quadrant abdominal pain. CT imaging showed mesenteric panniculitis ileus to be considered. Patient does have a past medical history which includes atrial fibrillation, hypertension, and thyroid disorder. Patient does admit to history of total knee arthroplasty of the bilateral knees. Past Medical History Past Medical History: Atrial Fibrillation, Hypertension, Thyroid Disorder History of Any Multi-Drug Resistant Organisms: None Reported Past Surgical History: Joint Replacement Additional Past Surgical History / Comment(s): bilateral knee replacements Past Psychological History: No Psychological Hx Reported Smoking Status: Never smoker Past Alcohol Use History: Occasional Past Drug Use History: None Reported - Past Family History Mother Family Medical History: Diabetes Mellitus Medications and Allergies Home Medications Medication Instructions Recorded Confirmed Type Furosemide [Lasix] 40 mg PO DAILY PRN 02/23/20 02/23/20 History Levothyroxine Sodium [Synthroid] 75 mcg PO DAILY 02/23/20 02/23/20 History Potassium Chloride [Klor-Con 10] 10 meq PO DAILY PRN 02/23/20 02/23/20 History Tamsulosin [Flomax] 0.4 mg PO DAILY 02/23/20 02/23/20 History Venlafaxine HCl [Effexor] 150 mg PO BID 02/23/20 02/23/20 History Warfarin [Coumadin] 5 mg PO WESA 02/23/20 02/23/20 History Warfarin [Coumadin] 10 mg PO SUMOTUTHFR 02/23/20 02/23/20 History amLODIPine [Norvasc] 10 mg PO DAILY 02/23/20 02/23/20 History atenoloL [Atenolol] 25 mg PO HS 02/23/20 02/23/20 History lisinopriL 40 mg PO DAILY 02/23/20 02/23/20 History traMADol HCL 50 - 100 mg PO Q6H PRN 02/23/20 02/23/20 History Allergies Allergy/AdvReac Type Severity Reaction Status Date / Time Penicillins Allergy Rash/Hives Verified 02/23/20 14:35 Physical Examination Physical exam: Patient is awake, alert, and oriented 3 Vital signs stable Good chest excursion with deep inspiration and expiration Examination of thoracic and lumbar spine reveals skin is intact with no abrasions, lacerations, or bruises; no erythema, purulence or signs of infection No specific pain with palpation along the thoracic or lumbar spine Dorsiflexion, plantarflexion, and extensor hallucis longus positive sustained bilaterally Lower extremity strength 5/5 bilaterally Evidence of well-healed incisions over the bilateral knees Straight leg test negative bilateral lower extremities Negative Lasegue's test bilaterally Patient is able to move legs independently in bed without significant difficulty No signs or symptoms of DVT; no calf pain No pain with internal and external rotation of the hips bilaterally No pain with passive range of motion of the left hip Evidence of skin changes of the anterior shins with a healing wound over the left skelton Neurovascularly intact Results Pertinent studies: CT the abdomen and pelvis taken on 02/23/2020 in which imaging is reviewed from an orthopedic standpoint; Evidence of lower thoracic ankylosing spondylosis or DISH; significant anterior osteophytic spurring of the lumbar spine; L3-4 and L4-5 spinal canal stenosis; no evidence of vertebral body compression fracture; lumbar facet arthropathy - Labs Labs: Abnormal Lab Results - Last 24 Hours (Table) 02/26/20 02/26/20 02/26/20 Range/Units 05:06 05:06 05:06 RBC 4.23 L (4.30-5.90) m/uL Hgb 11.2 L (13.0-17.5) gm/dL Hct 36.3 L (39.0-53.0) % MCHC 30.9 L (31.0-37.0) g/dL RDW 17.2 H (11.5-15.5) % Lymphocytes # 0.6 L (1.0-4.8) k/uL PT 18.8 H (9.9-11.9) sec INR 1.80 H (0.90-1.11) BUN/Creatinine Ratio 11.82 L (12.00-20.00) Ratio Calcium 8.1 L (8.7-10.3) mg/dL Total Protein 5.6 L (6.2-8.2) g/dL Albumin 3.50 L (3.80-4.90) g/dL H & H 02/23/20 02/24/20 02/25/20 Range/Units 13:52 06:03 05:50 Hgb 12.3 L 12.1 L 11.3 L (13.0-17.5) gm/dL Hct 38.9 L 40.8 37.1 L (39.0-53.0) % 02/26/20 Range/Units 05:06 Hgb 11.2 L (13.0-17.5) gm/dL Hct 36.3 L (39.0-53.0) % Coagulation 02/23/20 02/24/20 02/25/20 Range/Units 13:52 06:03 05:50 INR 2.0 H 1.6 H 1.64 H (<1.2) 02/26/20 Range/Units 05:06 INR 1.80 H (<1.2) Result Diagrams: 02/26/20 05:06 02/26/20 05:06 Assessment and Plan Assessment: Assessment: Left-sided low back pain Left lower quadrant abdominal pain Left-sided groin pain L3-4 and L4-5 spinal canal stenosis Lumbar facet arthropathy Lumbar osteophytic spurring Lower thoracic ankylosing spondylosis or DISH 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 Atrial fibrillation Hypertension Morbid obesity Thyroid disorder (1) Acute left-sided low back pain Current Visit: Yes Status: Acute Code(s): M54.5 - LOW BACK PAIN SNOMED Code(s): 464735736 (2) Left groin pain Current Visit: Yes Status: Acute Code(s): R10.32 - LEFT LOWER QUADRANT PAIN SNOMED Code(s): 10289528293835561 (3) Lumbar spinal stenosis Current Visit: Yes Status: Acute Code(s): M48.061 - SPINAL STENOSIS, LUMBAR REGION WITHOUT NEUROGENIC EDEN SNOMED Code(s): 80252215 (4) Lumbar facet arthropathy Current Visit: Yes Status: Acute Code(s): M47.816 - SPONDYLOSIS W/O MYELOPATHY OR RADICULOPATHY, LUMBAR REGION SNOMED Code(s): 008146520 (5) Ankylosing spondylitis Current Visit: Yes Status: Acute Code(s): M45.9 - ANKYLOSING SPONDYLITIS OF UNSPECIFIED SITES IN SPINE SNOMED Code(s): 0251845 (6) Osteophyte Current Visit: Yes Status: Acute Code(s): M25.70 - OSTEOPHYTE, UNSPECIFIED JOINT SNOMED Code(s): 055554292285761 (7) History of atrial fibrillation Current Visit: Yes Status: Acute Code(s): Z86.79 - PERSONAL HISTORY OF OTHER DISEASES OF THE CIRCULATORY SYSTEM SNOMED Code(s): 486988784 (8) Hypertension Current Visit: Yes Status: Acute Code(s): I10 - ESSENTIAL (PRIMARY) HYPERTENSION SNOMED Code(s): 58976660 (9) Thyroid disorder Current Visit: Yes Status: Acute Code(s): E07.9 - DISORDER OF THYROID, UNSPECIFIED SNOMED Code(s): 28441619 (10) Morbid obesity with BMI of 40.0-44.9, adult Current Visit: Yes Status: Acute Code(s): E66.01 - MORBID (SEVERE) OBESITY DUE TO EXCESS CALORIES; Z68.41 - BODY MASS INDEX [BMI]40.0-44.9, ADULT SNOMED Code(s): 936487387 (11) Left lower quadrant abdominal pain Current Visit: Yes Status: Acute Code(s): R10.32 - LEFT LOWER QUADRANT PAIN SNOMED Code(s): 869425523 (12) Mesenteric panniculitis Current Visit: Yes Status: Acute Code(s): K65.4 - SCLEROSING MESENTERITIS SNOMED Code(s): 2364721500217363 Plan: Plan: 1. Patient has been discussed in detail with Dr. Andrea Ayoub and imaging has been reviewed by myself and Dr. Andrea Ayoub. After physical examination of the patient, reviewing imaging, and further discussion with the patient, we will lópez n to continue with conservative treatment at this time. Patient does not have a history of low back pain. He is not currently experiencing specific lower extremity weakness or radiculopathy bilaterally. He does have some left-sided low back pain that radiates around the side towards as left lower quadrant of the abdomen and some pain towards the left groin. He does not have any pain with internal rotation or external rotation of the left hip. He does not have increased pain at the left hip with passive hip flexion. He does feel his pain has been improving over the past several days. His symptoms have been ongoing over the past week. He denies specific injury but does state he feels his symptoms may correlate after pulling kayaks out of the river. At this time, we did discussed we could consider consultation with pain management but given the patient's improvement, we would recommend continuing with conservative treatment to see if his symptoms continue to improve. Patient is planning to go to [place] this coming week and will plan to remain in [place] until the spring. We discussed we would plan to have the patient follow-up in the outpatient setting in the spring after returning back to [place]. We're not currently planning for further imaging or acute surgical intervention in regards to his lumbar spine. At this time, patient is cleared for discharge from orthopedic spine standpoint. 2. Patient will continue to be seen and examined by general surgery. He is planning for colonoscopy today. Time with Patient: Greater than 30 (Including obtaining history, physical examination, reviewing of imaging, and dictation.)
[2020-02-26] MEDS: SODIUM CHLORIDE 0.9% 1,000 ML IV SCH ×2 (13:47→15:39)
[2020-02-26] MEDS ORDERED: PROPOFOL 10 MG/ML 20 ML VIAL IV ONE (14:09)
[2020-02-26] MEDS ORDERED: IV FLUID CONTINUATION 1,000 ML IV ONE ×2 (14:12)
[2020-02-26] MEDS ORDERED: LACTATED RINGERS 1,000 ML IV ONE (14:31)
[2020-02-26 14:35] LABS: Zinc, Serum 73 ug/dL (60-130)
--- NOTE | 2020-02-26 14:47 | CDI ---
Documentation Clarification Form Date: 02/26/2020 02:27:15 PM From: Dianelys Fernandes RN, CCDS Admit Date: 02/23/2020 04:19:00 PM Patient Name: Casey Salinas Visit Number: [id number] Discharge Date: ATTENTION: The Clinical Documentation Specialists (CDI) and [facility] Coding Staff appreciate your assistance in clarifying documentation. Please respond to the clarification below the line at the bottom and electronically sign. The CDI & [facility] Coding staff will review the response and follow-up if needed. Please note: Queries are made part of the Legal Health Record. If you have any questions, please contact the author of this message via ITS. Dr. Saira Murray Atrial Fibrillation is documented in the patient past medical history with ongoing treatment. Please clarify type of atrial fibrillation if known. History/Risk Factors: Atrial Fibrillation, Hypertension, Thyroid Disorder Clinical Indicators: 69-year-old male present on 02/22 with complaints of abdominal pain, left flank. He has a history of atrial fibrillation treated with Coumadin in the outpatient setting. 02/24 Patient reports blood in stools and he is on anticoagulant. Anticoagulant discontinued. 02/22 HGB 2.3, HCT 38.9 PT 19.2 INR 2.0 APTT 29.7 02/24 INR 1.64 Treatment: Coumadin 7.5 mg po bid 02/22 10 mg po once (02/23) Coumadin on hold 02/24 Monitor INR Daily In your professional opinion, can you please clarify the type of Atrial Fibrillation, if known? Chronic/Permanent Paroxysmal Persistent Other, please specify Unable to determine (Last Revision: July 2017) unable to determine MTDD
--- NOTE | 2020-02-26 14:54 | P.PCN ---
Date of Procedure: 02/26/20 Description of Procedure: PREOPERATIVE DIAGNOSIS: Left lower quadrant abdominal pain History of blood in stools History of polyps Active chronic anticoagulation POSTOPERATIVE DIAGNOSIS: Left lower quadrant abdominal pain History of blood in stools History of polyps Active chronic anticoagulation OPERATION: Colonoscopy to the cecum, ileocecal valve and appendiceal orifice SURGEON: Adele De Los Santos MD. ANESTHESIA: MAC. INDICATIONS: The patient is a 69-year-old male who reports left lower quadrant abdominal pain and history of bleeding. Patient had elevated INR this morning prohibiting polypectomy. Diagnostic colonoscopy was offered. Benefits and risks were described and informed consent was obtained. DESCRIPTION OF PROCEDURE: The patient had undergone Golytely prep. He had been brought into the operating room and laid in the left lateral decubitus position. After adequate intravenous sedation, the rectum was examined with 2% lidocaine jelly. No external hemorrhoids were encountered. The prostate was unremarkable. The rectal tone was within normal limits. No lesions were palpated in the rectal vault. An Olympus colonoscope was advanced until the cecum, ileocecal valve and appendiceal orifice were reviewed but obscured by stool. The prep was fair. No scattered diverticulosis was encountered. Tubular adenomas of 6 mm for 2 were found at the rectum including at the descending colon however unable to be biopsied due to chronic anticoagulation. No evidence of focal colitis was found. Retroflexion of the scope demonstrated grade 1 internal hemorrhoids without active bleeding or inflammation. The colon was desufflated. The patient had tolerated the procedure well. Withdrawal time was over 6 minutes. FINDINGS: Aronchick preparation quality scale 3 (1-5) Internal hemorrhoids, grade 1 No external prolapsed hemorrhoids. No arteriovenous malformations. Colon adenoma of the descending colon and rectum deferred for biopsy due to active anticoagulation No focal colitis. RECOMMENDATIONS: Repeat colonoscopy in 6 months, July 2020 with at least 2 day colonoscopy prep We'll need to be off anticoagulants for 5 days
--- NOTE | 2020-02-26 15:19 | CDI ---
Documentation Clarification Form Date: 02/26/2020 02:55:14 PM From: Dianelys Fernandes RN, CCDS Admit Date: 02/23/2020 04:19:00 PM Patient Name: Casey Salinas Visit Number: [id number] Discharge Date: ATTENTION: The Clinical Documentation Specialists (CDI) and [facility] Coding Staff appreciate your assistance in clarifying documentation. Please respond to the clarification below the line at the bottom and electronically sign. The CDI & [facility] Coding staff will review the response and follow-up if needed. Please note: Queries are made part of the Legal Health Record. If you have any questions, please contact the author of this message via ITS. Dr. Saira Murray The patient presented with abdominal pain. Vital signs on admission and ED showing elevated readings. Please document what, if any this may indicate. History/Risk Factors: Atrial Fibrillation, Hypertension Clinical Indicators: 69-year-old male present to ED with complaints of abdominal pain mostly in the left lower quadrant. panniculitis, ileus to be considered. 02/22 at 13:26: Vital signs 154/105 87 20 02/22 at 15:34 Vital signs 165/103 77 18 02/22 at 18:00 Vital signs 170/124 76 19 Treatment: Apresoline 10 mg ivp 6q 6 hrs prn blood pressure (02/22 @ 19:48) Tenormin 25 mg po hs Norvasc 10 mg po daily Morphine 4 mg IV (02/22 @ 14:49, 16:31) In your professional opinion, can you please clarify hypertension? Hypertensive Urgency Hypertensive Emergency Other, please specify Unable to determine (Last Revision: July 2017) hypertensive urgency MTDD
--- NOTE | 2020-02-26 18:02 | P.PN ---
Subjective Progress Note Date: 02/26/20 Casey Salinas, is a 69-year-old male who presented to [facility] emergency room with a chief complaint of left sided abdominal pain patient stated that his pain started about 1 week ago in the left flank area and has been worsening and radiating to the front, he was evaluated in the emergency room, his vital examination on presentation revealed a temperature of 97.4 pulse 87 respiration 20 blood pressure 154/105 pulse ox 99% on room air his white blood count was 5.8 hemoglobin 12.3 platelet count 177 INR 2.0 sodium 136 BUN 29 creatinine 1.37 lipase was slightly elevated at 336 urine analysis revealed a trace of blood with rare mucus KUB in the emergency room revealed nonspecific abdomen, computed tomography scan of the abdomen and pelvis done in the emergency room revealed mesenteric panniculitis, with subcentimeter prominent lymph nodes and possible ileus, no evidence of kidney stones or hydronephrosis. Patient was started on IV antibiotic and was admitted to medical floor general surgery consultation was requested. Patient has a known history of hypertension, hypothyroidism, benign prostatic hypertrophy, history of atrial fibrillation maintained on Coumadin, and history of hyperlipidemia. On review of systems patient is alert and oriented 3 in no distress, he is still complaining of abdominal pain mostly in the left lower quadrant otherwise he denies any complaints there is no fever or chills no headache or dizziness, no chest pain no shortness of breath no cough no nausea or vomiting no diarrhea no blood in the stools no burning with urination no frequency or urgency and no hematuria. On 02/25/2020 patient is alert and oriented 3. Plans for colonoscopy tomorrow per Dr. Dillard due to blood in stool. Patient is currently with colon prep. Hemoglobin 11.4. At this time patient denies chest pain or shortness of breath. Patient does still report some left lower quadrant abdominal discomfort. Patient denies any nausea or vomiting. Patient denies any urinary burning or frequency On 02/26/2020 patient was seen and examined on the medical floor he is alert and oriented 3 in no distress, he is still complaining of left lower quadrant abdominal pain otherwise he denies any complaints there is no fever or chills no headache or dizziness no chest pain no shortness of breath no cough no nausea or vomiting no diarrhea no blood in the stools no burning with urination no frequency or urgency no hematuria, patient underwent colonoscopy today with Dr. De Los Santos results reviewed and discussed with the patient will continue with current medication will monitor still tomorrow and restart anticoagulation tomorrow if stable patient can go home tomorrow Objective - Vital Signs Vital signs: Vital Signs Temp 97.7 F 02/26/20 14:56 Pulse 89 02/26/20 14:56 Resp 20 02/26/20 14:56 BP 155/97 02/26/20 14:56 Pulse Ox 97 02/26/20 14:56 Intake & Output 02/25/20 02/26/20 02/26/20 18:59 06:59 18:59 Intake Total 3179 950 Balance 3179 950 Intake: IV 200 Intake, IV Titration 1998 750 Amount Sodium Chloride 0.9% 1, 900 600 000 ml @ 75 mls/hr IV . [id number] [facility] Rx#:[id number] Sodium Chloride 0.9% 1, 999 000 ml @ 999 mls/hr IV . Q1H1M ONE Rx#:[id number] cefTRIAXone 1 gm In 50 Sodium Chloride 0.9% 50 ml @ 100 mls/hr IVPB Q24HR [facility] Rx#:[id number]-NS PMX 500 100 100 mg In Saline 1 100ml.bag @ 100 mls/hr IVPB Q8HR [facility] Rx#:[id number] Oral 1180 Other: Voiding Method Toilet Toilet # Voids 1 2 # Bowel Movements 2 - Exam In general patient is alert and oriented 3 in no distress HEENT head normocephalic and atraumatic Neck is supple no JVD no goiter no lymphadenopathy Chest exam reveals a few scattered rhonchi no wheezing Cardiac exam reveals regular heart sounds S1 and S2 no gallops no murmurs Abdomen is soft with tenderness in the left lower quadrant no rigidity or rebound no organomegaly with normal bowel sounds Extremity exam reveals no edema no cyanosis or clubbing Neurological examination reveals no gross focal deficit - Labs CBC & Chem 7: 02/26/20 05:06 02/26/20 05:06 Labs: Abnormal Lab Results - Last 24 Hours (Table) 02/26/20 02/26/20 02/26/20 Range/Units 05:06 05:06 05:06 RBC 4.23 L (4.30-5.90) m/uL Hgb 11.2 L (13.0-17.5) gm/dL Hct 36.3 L (39.0-53.0) % MCHC 30.9 L (31.0-37.0) g/dL RDW 17.2 H (11.5-15.5) % Lymphocytes # 0.6 L (1.0-4.8) k/uL PT 18.8 H (9.9-11.9) sec INR 1.80 H (0.90-1.11) BUN/Creatinine Ratio 11.82 L (12.00-20.00) Ratio Calcium 8.1 L (8.7-10.3) mg/dL Total Protein 5.6 L (6.2-8.2) g/dL Albumin 3.50 L (3.80-4.90) g/dL Assessment and Plan Plan: Left lower quadrant abdominal pain with blood in stool. Plans for colonoscopy per surgical services on 02/26/2020 Dehydration with acute kidney injury. Resolved Abnormal computed tomography scan of the abdomen revealing mesenteric panniculitis with prominent mesenteric lymph nodes and possible ileus, awaiting surgical opinion Pain in the left flank area will check ultrasound of the kidneys. Ultrasound of kidneys completed showing no hydronephrosis noted bilaterally. Underlying history of atrial fibrillation maintained on Coumadin continue. Co umadin on hold for colonoscopy tomorrow Underlying history of hypertension Underlying history of hyperlipidemia DVT prophylaxis SCDs, Coumadin on hold for colonoscopy GI prophylaxis Protonix Flagyl for IV antibiotics Surgical service is following Plans for colonoscopy 02/26/2020
[2020-02-26 20:04] VITALS: RESP 16
[2020-02-26] MEDS: MORPHINE SULFATE 4 MG/ML SYRINGE IV PRN ×2 (20:05→23:54)
[2020-02-26] MEDS: atenoloL 25 MG TAB PO SCH (20:05)
[2020-02-27] MEDS: LEVOTHYROXINE 75 MCG TAB PO SCH (05:47)
[2020-02-27 06:10] LABS: Vitamin A 32 ug/dL (38-106)
[2020-02-27 08:04] VITALS: BP 158/110; PULSE 76; TEMP 97.8
[2020-02-27] MEDS: TAMSULOSIN 0.4 MG CAP.ER.24H PO SCH (09:10)
[2020-02-27] MEDS: lisinopriL 20 MG TAB PO SCH (09:10)
[2020-02-27] MEDS: amLODIPine 10 MG TAB PO SCH (09:10)
[2020-02-27] MEDS: VENLAFAXINE HCL 75 MG TAB PO SCH (09:10)
--- NOTE | 2020-02-27 10:25 | P.DS ---
Providers Date of admission: 02/23/20 16:19 Expected date of discharge: 02/27/20 Attending physician: Saira Murray Consults: 02/23/20 19:12 Consult Physician Routine Consulting Provider: Adele De Los Santos Consult Reason/Comments: abdominal pain Do you want consulting provider notified?: Yes 02/25/20 16:52 Consult Physician Routine Consulting Provider: Jatin Ayoub Consult Reason/Comments: Severe lower back pain, spurring lumbar spine Do you want consulting provider notified?: Yes, Notify in am Primary care physician: Debora Barkley [facility] Course: Diagnoses on discharge: 1. Left lower quadrant abdominal pain with blood in stool. Plans for colonoscopy per surgical services on 02/26/2020 2. Dehydration with acute kidney injury. Resolved 3. 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 Pain in the left flank area will check ultrasound of the kidneys. Ultrasound of kidneys completed showing no hydronephrosis noted bilaterally. 5. Underlying history of atrial fibrillation maintained on Coumadin continue. Coumadin on hold for colonoscopy tomorrow 6. Underlying history of hypertension 7. Underlying history of hyperlipidemia Hospital course: Casey Salinas, is a 69-year-old male who presented to [facility] emergency room with a chief complaint of left sided abdominal pain patient stated that his pain started about 1 week ago in the left flank area and has been worsening and radiating to the front, he was evaluated in the emergency room, his vital examination on presentation revealed a temperature of 97.4 pulse 87 respiration 20 blood pressure 154/105 pulse ox 99% on room air his white blood count was 5.8 hemoglobin 12.3 platelet count 177 INR 2.0 sodium 136 BUN 29 creatinine 1.37 lipase was slightly elevated at 336 urine analysis revealed a trace of blood with rare mucus KUB in the emergency room revealed nonspecific abdomen, computed tomography scan of the abdomen and pelvis done in the emergency room revealed mesenteric panniculitis, with subcentimeter prominent lymph nodes and possible ileus, no evidence of kidney stones or hydronephrosis. Patient was started on IV antibiotic and was admitted to medical floor general surgery consultation was requested. Patient has a known history of hypertension, hypothyroidism, benign prostatic hypertrophy, history of atrial fibrillation maintained on Coumadin, and history of hyperlipidemia. On review of systems patient is alert and oriented 3 in no distress, he is still complaining of abdominal pain mostly in the left lower quadrant otherwise he denies any complaints there is no fever or chills no headache or dizziness, no chest pain no shortness of breath no cough no nausea or vomiting no diarrhea no blood in the stools no burning with urination no frequency or urgency and no hematuria. On 02/25/2020 patient is alert and oriented 3. Plans for colonoscopy tomorrow per Dr. Dillard due to blood in stool. Patient is currently with colon prep. Hemoglobin 11.4. At this time patient denies chest pain or shortness of breath. Patient does still report some left lower quadrant abdominal discomfort. Patient denies any nausea or vomiting. Patient denies any urinary burning or frequency On 02/26/2020 patient was seen and examined on the medical floor he is alert and oriented 3 in no distress, he is still complaining of left lower quadrant abdominal pain otherwise he denies any complaints there is no fever or chills no headache or dizziness no chest pain no shortness of breath no cough no nausea or vomiting no diarrhea no blood in the stools no burning with urination no frequency or urgency no hematuria, patient underwent colonoscopy today with Dr. De Los Santos results reviewed and discussed with the patient will continue with current medication will monitor still tomorrow and restart anticoagulation tomorrow if stable patient can go home tomorrow 02/27/2020 patient was seen and examined on the medical floor he is alert and oriented 3 in no apparent distress there is no fever or chills no headache or dizziness no chest pain no shortness of breath no cough no nausea or vomiting, his abdominal pain is improving no diarrhea no blood in the stools no burning with urination no frequency or urgency and no hematuria. Patient is stable and wishes to go home today, he will be discharged home today, he was given a course of oral Ceftin 500 mg twice daily for 10 days, he will follow-up with his primary care physician Dr. Barkley, he will also follow-up with Dr. De Los Santos, she is recommending repeat colonoscopy in 6 months Patient Condition at Discharge: Stable Plan - Discharge Summary Discharge Rx Participant: Yes New Discharge Prescriptions: New Cefuroxime Axetil [Ceftin] 500 mg PO BID 10 Days #20 tab Pantoprazole [Protonix] 0 mg PO DAILY 30 Days #30 tablet.dr Rodriguez Warfarin [Coumadin] 10 mg PO SUMOTUTHFR Warfarin [Coumadin] 5 mg PO WESA Tamsulosin [Flomax] 0.4 mg PO DAILY lisinopriL 40 mg PO DAILY Venlafaxine HCl [Effexor] 150 mg PO BID Levothyroxine Sodium [Synthroid] 75 mcg PO DAILY atenoloL [Atenolol] 25 mg PO HS amLODIPine [Norvasc] 10 mg PO DAILY Potassium Chloride [Klor-Con 10] 10 meq PO DAILY PRN PRN Reason: w/lasix Furosemide [Lasix] 40 mg PO DAILY PRN PRN Reason: Edema traMADol HCL 50 - 100 mg PO Q6H PRN PRN Reason: Pain Discharge Medication List Furosemide [Lasix] 40 mg PO DAILY PRN 02/23/20 [History] Levothyroxine Sodium [Synthroid] 75 mcg PO DAILY 02/23/20 [History] Potassium Chloride [Klor-Con 10] 10 meq PO DAILY PRN 02/23/20 [History] Tamsulosin [Flomax] 0.4 mg PO DAILY 02/23/20 [History] Venlafaxine HCl [Effexor] 150 mg PO BID 02/23/20 [History] Warfarin [Coumadin] 5 mg PO WESA 02/23/20 [History] Warfarin [Coumadin] 10 mg PO SUMOTUTHFR 02/23/20 [History] amLODIPine [Norvasc] 10 mg PO DAILY 02/23/20 [History] atenoloL [Atenolol] 25 mg PO HS 02/23/20 [History] lisinopriL 40 mg PO DAILY 02/23/20 [History] traMADol HCL 50 - 100 mg PO Q6H PRN 02/23/20 [History] Cefuroxime Axetil [Ceftin] 500 mg PO BID 10 Days #20 tab 02/27/20 [Rx] Pantoprazole [Protonix] 0 mg PO DAILY 30 Days #30 tablet. 02/27/20 [Rx] Follow up Appointment(s)/Referral(s): Debora Barkley MD [Primary Care Provider] - 1-2 days Stef Larsen PAC [[facility]] - As Needed (Patient may follow-up with Stef Larsen PA-C or Dr. Andrea Ayoub at [facility] in 6 months following discharge as the patient is traveling to [place] for the winter this week. )
[2020-02-27] MEDS: PANTOPRAZOLE 40 MG/10 ML VIAL IVP SCH (10:29)
[2020-02-27] MEDS: metroNIDAZOLE-NS PMX 500 MG in SALINE 1 100ML.BAG IVPB SCH (10:29)
--- NOTE | 2020-02-27 11:37 | P.PN ---
<Lyla Carey - Last Filed: 02/27/20 11:26> Subjective Progress Note Date: 02/27/20 CHIEF COMPLAINT: Abdominal pain HISTORY OF PRESENT ILLNESS: The patient is a 69 year old male with previous history of gastric bypass had been lost to follow-up presented with left lower quadrant abdominal pain. He reports it started as left lower back pain. Patient reports having blood in stools and he is on anticoagulant. Patient Status post colonoscopy. Patient reports improvement in his abdominal pain. He still has some mild left lower quadrant pain. He is scheduled for discharge today. Hemoglobin 11.2. He is afebrile. He reports no further blood in the stools. PHYSICAL EXAM: VITAL SIGNS: Reviewed GENERAL: Well-developed in no acute distress. HEENT: No sclera icterus. Extraocular movements grossly intact. Moist buccal mucosa. Head is atraumatic, normocephalic. Hears conversational speech. No nasal drainag e. NECK: Supple without lymphadenopathy. CHEST: Non-labored respirations and equal bilateral excursions. CARDIOVASCULAR: Regular rate with regular rhythm. Palpable 2+ radial pulses. ABDOMEN: Soft. Nondistended. Nontender With palpation MUSCULOSKELETAL: No clubbing or cyanosis. NEUROLOGIC: No focal or lateralizing signs. Cranial nerves II through XII grossly intact. PSYCH: Appropriate affect. Alert and oriented to person, place and time. SKIN: Well perfused. Good skin turgor. ASSESSMENT: 1. Abdominal pain, left lower quadrant. Status post colonoscopy results showing internal hemorrhoids and colon adenoma of the descending colon and rectum which was deferred for biopsy due to active anticoagulation 2. Mesenteric panniculitis 3. History of gastric bypass 4. Hematochezia 5. Personal history of colon polyps 6. Macro- and micronutrient deficiencies secondary to gastric bypass 7. Iron deficiency anemia 8. Hypothyroidism 9. Lower back pain PLAN: -Patient encouraged to wait to be seen by Dr. De Los Santos before discharge. However, patient refused to wait and is being discharged. He will follow-up with Dr. De Los Santos in the office on 03/19/2020 Physician History Tutor note has been reviewed by physician. Signing provider agrees with the documented findings, assessment, and plan of care. Objective - Vital Signs Vital signs: Vital Signs Temp 97.8 F 02/27/20 08:00 Pulse 76 02/27/20 08:00 Resp 16 02/27/20 08:00 BP 158/110 02/27/20 08:00 Pulse Ox 95 02/27/20 04:45 Intake & Output 02/26/20 02/27/20 02/27/20 18:59 06:59 18:59 Intake Total 950 900 Balance 950 900 Intake: IV 200 Intake, IV Titration 750 900 Amount Sodium Chloride 0.9% 1, 600 900 000 ml @ 75 mls/hr IV . [id number] EMANUEL Rx#:[id number] cefTRIAXone 1 gm In 50 Sodium Chloride 0.9% 50 ml @ 100 mls/hr IVPB Q24HR EMANUEL Rx#:[id number] metroNIDAZOLE-NS PMX 500 100 mg In Saline 1 100ml.bag @ 100 mls/hr IVPB Q8HR EMANUEL Rx#:[id number] Other: Voiding Method Toilet Toilet # Voids 2 - Labs CBC & Chem 7: 02/26/20 05:06 02/26/20 05:06 Labs: Abnormal Lab Results - Last 24 Hours (Table) 02/25/20 Range/Units 05:50 Vitamin A 32 L (38-106) ug/dL <Adele De Los Santos - Last Filed: 02/28/20 22:33> Subjective As above. Patient completed a colonoscopy with features of colon polyps unresectable secondary to active anticoagulation. Patient to follow-up in the office regarding blood work including scheduling for patient colonoscopy with polypectomy Objective - Vital Signs Vital signs: Vital Signs Temp 97.8 F 02/27/20 08:00 Pulse 76 02/27/20 08:00 Resp 16 02/27/20 08:00 BP 158/110 02/27/20 08:00 Pulse Ox 95 02/27/20 04:45 - Labs CBC & Chem 7: 02/26/20 05:06 02/26/20 05:06 Assessment and Plan (1) H/O gastric bypass Status: Acute Code(s): Z98.84 - BARIATRIC SURGERY STATUS SNOMED Code(s): 132670440 (2) Rectal bleeding Status: Acute Code(s): K62.5 - HEMORRHAGE OF ANUS AND RECTUM SNOMED Code(s): 52564709 (3) Nutritional deficiency Status: Acute Code(s): E63.9 - NUTRITIONAL DEFICIENCY, UNSPECIFIED SNOMED Code(s): 94039139 (4) Morbid obesity due to excess calories Status: Acute Code(s): E66.01 - MORBID (SEVERE) OBESITY DUE TO EXCESS CALORIES SNOMED Code(s): 007189791 (5) BMI 40.0-44.9, adult Status: Acute Code(s): Z68.41 - BODY MASS INDEX [BMI]40.0-44.9, ADULT SNOMED Code(s): 035316697 (6) Left lower quadrant abdominal pain Status: Acute Code(s): R10.32 - LEFT LOWER QUADRANT PAIN SNOMED Code(s): 214867686 (7) Mesenteric panniculitis Status: Acute Code(s): K65.4 - SCLEROSING MESENTERITIS SNOMED Code(s): 1 [id number]
[2020-02-28 11:32] LABS: Vit B1(Thiamine) 49 ug/L (38-122)
[2020-02-29 02:14] LABS: Selenium 86 mcg/L (63-160)
== END 2020-02-27 12:11 | disposition home or self-care (01) | DRG 394 ==
LOC: EC 13:20 → 6NMEDSUR 16:19
PROVIDERS: ADMIT Internal Medicine; ATTEND Internal Medicine
PROC: 0DJD8ZZ Inspection of Lower Intestinal Tract, Via Natural or Artificial Opening Endoscopic (ICD-10-PCS; principal; 2020-02-26 07:30)
DX: K65.4 Sclerosing mesenteritis (principal); K56.7 Ileus, unspecified; N17.9 Acute kidney failure, unspecified; Z68.41 Body mass index [BMI] 40.0-44.9, adult; K91.1 Postgastric surgery syndromes; D50.9 Iron deficiency anemia, unspecified; E03.9 Hypothyroidism, unspecified; E66.01 Morbid (severe) obesity due to excess calories; E78.5 Hyperlipidemia, unspecified; E86.0 Dehydration; I10 Essential (primary) hypertension; I48.91 Unspecified atrial fibrillation; K64.0 First degree hemorrhoids; M45.6 Ankylosing spondylitis lumbar region; M48.061 Spinal stenosis, lumbar region without neurogenic claudication; M47.816 Spondylosis without myelopathy or radiculopathy, lumbar region; N40.0 Benign prostatic hyperplasia without lower urinary tract symptoms; I16.0 Hypertensive urgency; R79.1 Abnormal coagulation profile; Z79.890 Hormone replacement therapy; Z79.899 Other long term (current) drug therapy; Z83.3 Family history of diabetes mellitus; Z87.19 Personal history of other diseases of the digestive system; Z96.653 Presence of artificial knee joint, bilateral; Z98.84 Bariatric surgery status; Z79.01 Long term (current) use of anticoagulants; Z86.010 Personal history of colon polyps; K62.1 Rectal polyp; M25.78 Osteophyte, vertebrae; Z88.0 Allergy status to penicillin
CPT/HCPCS: 36415; 45378; 74018; 74176; 76770; 80053; 80061; 81001; 82150; 82306; 82525; 82607; 82728; 82746; 83036; 83540; 83550; 83605; 83690; 83735; 84100; 84255; 84425; 84443; 84590; 84630; 85025; 85610; 85730; 94660; 96361; 96374; 96375; 99285

== ENCOUNTER → 2020-06-25 | Outpatient (CLI) | payer MEDICARE ==
[2020-06-25 18:32] LABS: HCT 40.8 % (39.6-50.0); HGB 12.3 g/dL (13.0-17.0); MCHC 30.1 g/dL (32.0-37.0); MCV 82.9 fL (80.0-97.0); Mean Platelet Volume 10.6 fL (9.5-12.2); Platelet Count 213 X 10*3/uL (140-440); RBC 4.92 X 10*6/uL (4.40-5.60); RDW 17.8 % (11.5-14.5)
[2020-06-25 23:48] LABS: African American GFR (CKD) 79.5 (60.0-200.0); Anion Gap 8.5 mmol/L (4.00-12.00); BUN/Creat Ratio 21.82 Ratio (12.00-20.00); Calcium 8.6 mg/dL (8.7-10.3); Carbon Dioxide 26.5 mmol/L (21.6-31.8); Chol/HDL Ratio 3.72; LDL Cholesterol,Calculated 115.6 mg/dL (0.0-131.0); Non-African American GFR(CKD) 68.6 (60.0-200.0); Potassium 3.8 mmol/L (3.5-5.5); VLDL Calculation 12.4 mg/dL (5.00-40.00)
== END | disposition home or self-care (01) ==
LOC: LABWHC1 10:35
PROVIDERS: ATTEND Internal Medicine Cardiovascular Disease
DX: E78.2 Mixed hyperlipidemia (principal); I48.21 Permanent atrial fibrillation
CPT/HCPCS: 36415; 80048; 80061; 84443; 84450; 84460; 85027

== ENCOUNTER 2020-09-11 08:55 | Day surgery (SDC) | payer MEDICARE ==
[~2020-09-11 08:55] MED LIST: LACTATED RINGERS 1,000 ML IV SCH
[2020-09-11 09:22] VITALS: RESP 16; TEMP 97.4
--- NOTE | 2020-09-11 09:40 | P.GSHP ---
History of Present Illness H&P Date: 09/11/20 CHIEF COMPLAINT: GERD and colon screen HISTORY OF PRESENT ILLNESS: The patient is a 70-year-old male who presents with gastroesophageal reflux disease and need for colon screen. Upper and lower endoscopy were offered for further evaluation and management. PAST MEDICAL HISTORY: Please see list. PAST SURGICAL HISTORY: Please see list. MEDICATIONS: Please see list. ALLERGIES: Please see list. SOCIAL HISTORY: No illicit drug use FAMILY HISTORY: No reports of Crohn disease or ulcerative colitis. REVIEW OF ORGAN SYSTEMS: CONSTITUTIONAL: No reports of fevers or chills. GI: Denies any blood in stools or constipation. PHYSICAL EXAM: VITAL SIGNS: Stable GENERAL: Well-developed pleasant in no acute distress. HEENT: No scleral icterus. Extraocular movements grossly intact. Moist buccal mucosa. NECK: Supple without lymphadenopathy. CHEST: Unlabored respirations. Equal bilateral excursions. CARDIOVASCULAR: Regular rate and rhythm. Distal 2+ pulses. ABDOMEN: Soft, nondistended. MUSCULOSKELETAL: No clubbing, cyanosis, or edema. ASSESSMENT: 1. Gastroesophageal reflux disease 2. Colon screen. PLAN: 1. Recommend proceeding with an upper and lower endoscopy Past Medical History Past Medical History: Atrial Fibrillation, Hypertension, Osteoarthritis (OA), Thyroid Disorder Additional Past Medical History / Comment(s): HAD COVID, FULLY VACCINATED WITH PFIZER History of Any Multi-Drug Resistant Organisms: None Reported Past Surgical History: Joint Replacement Additional Past Surgical History / Comment(s): Bilateral knee replacements. GASTRIC BYPASS (DONE IN [place] ABOUT 20YRS) Past Anesthesia/Blood Transfusion Reactions: No Reported Reaction Past Psychological History: No Psychological Hx Reported Smoking Status: Never smoker Past Alcohol Use History: Occasional Additional Past Alcohol Use History / Comment(s): OCCASIONAL CIGAR Past Drug Use History: None Reported - Past Family History Mother Family Medical History: Diabetes Mellitus Medications and Allergies Home Medications Medication Instructions Recorded Confirmed Type Furosemide [Lasix] 40 mg PO QAM PRN 02/23/20 09/11/20 History Levothyroxine Sodium [Synthroid] 75 mcg PO QAM 02/23/20 09/11/20 History Potassium Chloride [Klor-Con 10] 10 meq PO QAM PRN 02/23/20 09/11/20 History Tamsulosin [Flomax] 0.4 mg PO QAM 02/23/20 09/11/20 History Venlafaxine HCl [Effexor] 150 mg PO QAM 02/23/20 09/11/20 History amLODIPine [Norvasc] 10 mg PO QAM 02/23/20 09/11/20 History lisinopriL 40 mg PO QAM 02/23/20 09/11/20 History Apixaban [Eliquis] 5 mg PO BID 09/09/20 09/11/20 History Ascorbic Acid [Vitamin C] 500 mg PO DAILY 09/09/20 09/11/20 History C,E,Zinc,Copper 11/Nvyie1d/Lut 1 cap PO DAILY 09/09/20 09/11/20 History [Ocuvite Adult 50 Plus Softgel] Cholecalciferol [Vitamin D3 (25 1 tab PO DAILY 09/09/20 09/11/20 History Mcg = 1000 Iu)] atenoloL [Atenolol] 25 mg PO QAM 09/09/20 09/11/20 History Allergies Allergy/AdvReac Type Severity Reaction Status Date / Time No Known Allergies Allergy Verified 09/11/20 09:23 Surgical - Exam Vital Signs Temp Pulse Resp BP Pulse Ox 97.4 F L 80 16 183/95 97 09/11/20 09:21 09/11/20 09:21 09/11/20 09:21 09/11/20 09:21 09/11/20 09:21
[2020-09-11] MEDS ORDERED: fentaNYL (PF) 50 MCG/ML 2 ML AMP ONE (10:18)
[2020-09-11] MEDS ORDERED: LIDOCAINE 1% INJ 10MG/ML (20 ML MDV) ONE (10:18)
[2020-09-11] MEDS ORDERED: PROPOFOL 10 MG/ML 20 ML VIAL IV ONE (10:18)
[2020-09-11] MEDS ORDERED: MIDAZOLAM 2 MG/2 ML VIAL ONE (10:18)
--- NOTE | 2020-09-11 11:00 | P.PCN ---
Date of Procedure: 09/11/20 Description of Procedure: PREOPERATIVE DIAGNOSIS: Anemia History of gastric bypass Chronic anticoagulant use POSTOPERATIVE DIAGNOSIS: Anemia History of gastric bypass Chronic anticoagulant use Rectal adenoma OPERATION: Colonoscopy to the ileocecal valve and appendiceal orifice, cecum Colonoscopy with hot snare polypectomy SURGEON: Adele De Los Santos MD. ANESTHESIA: MAC. INDICATIONS: The patient is an 70-year-old male who presents with anemia. Benefits and risks were described and informed consent was obtained. DESCRIPTION OF PROCEDURE: The patient had undergone Sutab prep. The patient had been brought into the operating room and laid in the left lateral decubitus position. After adequate intravenous sedation, the rectum was examined with 2% lidocaine jelly. The prostate was unremarkable. No external hemorrhoids were encountered. The rectal tone was within normal limits. No lesions were palpated in the rectal vault. An Olympus colonoscope was advanced until the cecum, ileocecal valve and appendiceal orifice were clearly viewed. The prep was limited. No sigmoid diverticulosis was encountered. Colonic polyps were found and removed. No evidence of focal colitis was found. Retroflexion of the scope demonstrated grade 2 internal hemorrhoids without active bleeding or inflammation. The colon was desufflated. The patient had tolerated the procedure well. Withdrawal time was over 6 minutes. FINDINGS: Aronchick preparation quality scale 3 (1-5) Internal hemorrhoids, grade 1 No external hemorrhoids No arteriovenous malformations. No sigmoid diverticulosis Removal of 2 polyps: - Snare polypectomy at rectum x 2, 3 mm and 10 tubulovillous adenoma polyp. No focal colitis. RECOMMENDATIONS: Repeat colonoscopy 2 years, 2022, high risk colon polyps Plan - Discharge Summary Discharge Rx Participant: No New Discharge Prescriptions: Continue Tamsulosin [Flomax] 0.4 mg PO QAM lisinopriL 40 mg PO QAM Venlafaxine HCl [Effexor] 150 mg PO QAM Levothyroxine Sodium [Synthroid] 75 mcg PO QAM amLODIPine [Norvasc] 10 mg PO QAM Potassium Chloride [Klor-Con 10] 10 meq PO QAM PRN PRN Reason: w/lasix Furosemide [Lasix] 40 mg PO QAM PRN PRN Reason: Edema Cholecalciferol [Vitamin D3 (25 Mcg = 1000 Iu)] 1 tab PO DAILY atenoloL [Atenolol] 25 mg PO QAM Apixaban [Eliquis] 5 mg PO BID C,E,Zinc,Copper 11/Lpeap9y/Lut [Ocuvite Adult 50 Plus Softgel] 1 cap PO DAILY Ascorbic Acid [Vitamin C] 500 mg PO DAILY Discharge Medication List Furosemide [Lasix] 40 mg PO QAM PRN 02/23/20 [History] Levothyroxine Sodium [Synthroid] 75 mcg PO QAM 02/23/20 [History] Potassium Chloride [Klor-Con 10] 10 meq PO QAM PRN 02/23/20 [History] Tamsulosin [Flomax] 0.4 mg PO QAM 02/23/20 [History] Venlafaxine HCl [Effexor] 150 mg PO QAM 02/23/20 [History] amLODIPine [Norvasc] 10 mg PO QAM 02/23/20 [History] lisinopriL 40 mg PO QAM 02/23/20 [History] Apixaban [Eliquis] 5 mg PO BID 09/09/20 [History] Ascorbic Acid [Vitamin C] 500 mg PO DAILY 09/09/20 [History] C,E,Zinc,Copper 11/Fwvfm5s/Lut [Ocuvite Adult 50 Plus Softgel] 1 cap PO DAILY 09/09/20 [History] Cholecalciferol [Vitamin D3 (25 Mcg = 1000 Iu)] 1 tab PO DAILY 09/09/20 [History] atenoloL [Atenolol] 25 mg PO QAM 09/09/20 [History] Follow up Appointment(s)/Referral(s): Adele De Los Santos MD [STAFF PHYSICIAN] - 09/19/20 Patient Instructions/Handouts: Colorectal Polyps (DC) Activity/Diet/Wound Care/Special Instructions: START BLOOD THINNER WednesdaySEPTEMBER 14 Repeat colonoscopy 2 years, 2022 Discharge Disposition: HOME SELF-CARE
--- NOTE | 2020-09-11 11:02 | P.PCN ---
Date of Procedure: 09/11/20 Description of Procedure: PREOPERATIVE DIAGNOSES: 1. Anemia 2. History of gastric bypass POSTOPERATIVE DIAGNOSES: 1. Anemia 2. History of gastric bypass PROCEDURE PERFORMED: Esophagogastrojejunoscopy. SURGEON: Adele De Los Santos MD ANESTHESIA: MAC. INDICATIONS: The patient is a 70-year-old male with prior history of Serenity-en-Y gastric bypass and new anemia. With his history of Serenity-en-Y gastric bypass, upper endoscopy was offered for further evaluation and management. DESCRIPTION: Patient was brought to the endoscopy suite and laid in the left lateral decubitus position. After adequate IV sedation, a bite block was placed. An Olympus gastroscope was passed along the posterior oropharynx down to the distal esophagus where the squamocolumnar junction was found at approximately 46 cm from the incisors. His anastomosis was found at 50 cm, consistent with approximately 4 cm gastric pouch. The scope was advanced 60 cm from the incisors. No evidence of foreign body was found. No evidence of active gastrojejunal ulcerations were encountered. The GI tract was desufflated. The patient tolerated the procedure well. FINDINGS: 1. No acute gastrojejunal ulceration. 2. No foreign body found along the anastomosis. PLAN: 1. Recommend upper endoscopy as needed.
[2020-09-11] MEDS ORDERED: IV FLUID CONTINUATION 1,000 ML IV ONE (11:34)
[2020-09-11 11:44] VITALS: BP 163/89; PULSE 67
== END 2020-09-11 11:52 | disposition home or self-care (01) ==
LOC: ORWHC2ENDO 08:55
PROVIDERS: ATTEND Surgery Plastic and Reconstructive Surgery
DX: Z12.11 Encounter for screening for malignant neoplasm of colon (principal); K21.9 Gastro-esophageal reflux disease without esophagitis; D12.6 Benign neoplasm of colon, unspecified; I48.91 Unspecified atrial fibrillation; I10 Essential (primary) hypertension; E07.9 Disorder of thyroid, unspecified; D64.9 Anemia, unspecified; M19.90 Unspecified osteoarthritis, unspecified site; Z86.16 Personal history of COVID-19; Z96.653 Presence of artificial knee joint, bilateral; Z72.0 Tobacco use; Z79.899 Other long term (current) drug therapy; Z79.01 Long term (current) use of anticoagulants; Z98.84 Bariatric surgery status
CPT/HCPCS: 45385; 43235; 88305; J2250; J2001; J3010; J2704

== ENCOUNTER → 2020-09-19 | Outpatient (CLI) | payer MEDICARE ==
[2020-09-19 10:39] LABS: Partial Thromboplastin Time 25.9 sec (22.0-30.0); Prothrombin Time 10.9 sec (9.0-12.0)
[2020-09-19 14:21] LABS: HCT 43.1 % (39.6-50.0); MCH 25.3 pg (27.0-32.0); MCHC 30.2 g/dL (32.0-37.0); MCV 83.9 fL (80.0-97.0); Mean Platelet Volume 10.9 fL (9.5-12.2); Platelet Count 207 X 10*3/uL (140-440); RBC 5.14 X 10*6/uL (4.40-5.60); RDW 16.6 % (11.5-14.5); WBC 5.68 X 10*3/uL (4.50-10.00)
[2020-09-19 16:03] LABS: Hemoglobin A1C 5.9 % (4.0-6.0)
[2020-09-19 21:57] LABS: % Iron Saturation 8.93 (15.00-50.00); African American GFR (CKD) 71.6 (60.0-200.0); Albumin 4.1 g/dL (3.80-4.90); Albumin/Globulin Ratio 1.58 (1.60-3.17); Anion Gap 5.3 mmol/L (4.00-12.00); BUN/Creat Ratio 22.5 Ratio (12.00-20.00); Calcium 8.6 mg/dL (8.7-10.3); Carbon Dioxide 25.7 mmol/L (21.6-31.8); Chol/HDL Ratio 3.52; Globulin 2.6 g/dL (1.6-3.3); LDL Cholesterol,Calculated 109.2 mg/dL (0.0-131.0); Magnesium 2.1 mg/dL (1.5-2.4); Non-African American GFR(CKD) 61.8 (60.0-200.0); Phosphorus 3.4 mg/dL (2.4-5.1); Potassium 4.2 mmol/L (3.5-5.5); Total Bilirubin 0.8 mg/dL (0.2-1.2); Total Protein 6.7 g/dL (6.2-8.2); VLDL Calculation 11.8 mg/dL (5.00-40.00)
[2020-09-19 22:01] LABS: Ferritin 15.8 ng/mL (22.0-322.0); Folate, Serum 10.3 ng/mL
[2020-09-20 14:18] LABS: Zinc, Serum 64 ug/dL (60-130)
[2020-09-22 17:00] LABS: Selenium 88 mcg/L (63-160)
[2020-09-24 06:27] LABS: Vitamin A 29 ug/dL (38-106)
[2020-09-24 06:48] LABS: Vit B1(Thiamine) 61 ug/L (38-122)
== END ==
LOC: LABWHC1 09:52
PROVIDERS: ATTEND Surgery Plastic and Reconstructive Surgery
DX: E66.01 Morbid (severe) obesity due to excess calories (principal); E21.1 Secondary hyperparathyroidism, not elsewhere classified; E44.0 Moderate protein-calorie malnutrition; E89.1 Postprocedural hypoinsulinemia; D50.8 Other iron deficiency anemias; K90.89 Other intestinal malabsorption; E55.9 Vitamin D deficiency, unspecified; K74.1 Hepatic sclerosis
CPT/HCPCS: 36415; 80053; 80061; 82306; 82525; 82607; 82728; 82746; 83036; 83540; 83550; 83735; 83970; 84100; 84134; 84255; 84425; 84443; 84590; 84630; 85027; 85610; 85730

== ENCOUNTER → 2020-10-30 | Outpatient (CLI) | payer MEDICARE ==
[~2020-10-30] MED LIST changes: +CYANOCOBALAMIN 1,000 MCG/ML 1 ML VIAL IM ONE; -LACTATED RINGERS 1,000 ML IV SCH
[2020-10-30 14:50] VITALS: BP 154/83; PULSE 98; RESP 16; TEMP 97.8
== END | disposition home or self-care (01) ==
LOC: PROCWHC3 13:44
PROVIDERS: ATTEND Surgery Plastic and Reconstructive Surgery
DX: D51.9 Vitamin B12 deficiency anemia, unspecified (principal)
CPT/HCPCS: 96372; J3420

== ENCOUNTER → 2020-10-30 | Outpatient (CLI) | payer MEDICARE | END | disposition home or self-care (01) | DX: E66.01 Morbid (severe) obesity due to excess calories (principal) | CPT/HCPCS: 99211 ==

== ENCOUNTER 2021-03-13 08:48 | Day surgery (SDC) | payer MEDICARE ==
[2021-03-12 09:58] VITALS: BMI 41.8
--- NOTE | 2021-03-13 07:54 | P.GSHP ---
History of Present Illness H&P Date: 03/13/21 CHIEF COMPLAINT: Ventral hernia HISTORY OF PRESENT ILLNESS: The patient is a 70-year-old male presents with a history of swelling and pain along the abdomen from a hernia including right inguinal hernia. Symptoms have been present for the 6 months. Now he presents for surgical intervention. PAST MEDICAL HISTORY: Please see list. PAST SURGICAL HISTORY: Please see list. MEDICATIONS: Please see list. ALLERGIES: Please see list. SOCIAL HISTORY: No illicit drug use FAMILY HISTORY: No reports of Crohn disease or ulcerative colitis. REVIEW OF ORGAN SYSTEMS: CONSTITUTIONAL: No reports of fevers or chills. No reports of weight loss despite prior attempts. GI: Denies any blood in stools or constipation. PHYSICAL EXAM: VITAL SIGNS: Stable GENERAL: Well-developed pleasant male in no acute distress. HEENT: No scleral icterus. Extraocular movements grossly intact. Moist buccal mucosa. NECK: Supple without lymphadenopathy. CHEST: Unlabored respirations. Equal bilateral excursions. CARDIOVASCULAR: Regular rate and rhythm. Distal 2+ pulses. ABDOMEN: Soft, nondistended. Palpable defect of the abdomen. No peritoneal signs. MUSCULOSKELETAL: No clubbing, cyanosis, or edema. ASSESSMENT: 1. Ventral hernia 2. Right inguinal hernia PLAN: 1. Recommend proceeding with robotic ventral and right inguinal hernia repair with mesh. 2. Benefits and risks of surgical intervention was discussed including possibility of open technique. 3. DVT prophylaxis. 4. Antibiotic prophylaxis. 5. Non narcotic pain management including abdominal wall block described Past Medical History Past Medical History: Atrial Fibrillation, Hypertension, Osteoarthritis (OA), Sleep Apnea/CPAP/BIPAP, Thyroid Disorder Additional Past Medical History / Comment(s): HAD COVID 2020, abdominal cramps, History of Any Multi-Drug Resistant Organisms: None Reported Past Surgical History: Appendectomy, Bariatric Surgery, Joint Replacement, Orthopedic Surgery Additional Past Surgical History / Comment(s): Bilateral knee replacements(Rt x 3). GASTRIC BYPASS (DONE IN [place] ABOUT 20YRS), arthroscopy rt knee Past Anesthesia/Blood Transfusion Reactions: No Reported Reaction Smoking Status: Current some day smoker - Past Family History Mother Family Medical History: Diabetes Mellitus Father Family Medical History: Cancer Medications and Allergies Home Medications Medication Instructions Recorded Confirmed Type Furosemide [Lasix] 40 mg PO QAM 02/23/20 03/12/21 History Levothyroxine Sodium [Synthroid] 75 mcg PO QAM 10/30/20 11/17/21 History Potassium Chloride [Klor-Con 10 ER] 20 meq PO QAM 02/23/20 03/12/21 History Venlafaxine HCl [Effexor] 150 mg PO QAM 02/23/20 03/12/21 History amLODIPine [Norvasc] 10 mg PO QAM 02/23/20 03/12/21 History lisinopriL 40 mg PO QAM 02/23/20 03/12/21 History Apixaban [Eliquis] 5 mg PO BID 09/09/20 03/12/21 History C,E,Zinc,Copper 11/Uomwv6h/Lut 1 cap PO DAILY 09/09/20 03/12/21 History [Ocuvite Adult 50 Plus Softgel] atenoloL 25 mg PO HS 09/09/20 03/12/21 History Allergies Allergy/AdvReac Type Severity Reaction Status Date / Time No Known Allergies Allergy Verified 03/12/21 09:41
[~2021-03-13 08:48] MED LIST changes: +ACETAMINOPHEN TAB 500 MG TAB PO PRN; -CYANOCOBALAMIN 1,000 MCG/ML 1 ML VIAL IM ONE; +DEXAMETHASONE SOD PHOSPHATE 4 MG/ML 1 ML VIAL IV ONE; +GABAPENTIN 300 MG CAP PO PRN; +HEPARIN SODIUM,PORCINE/PF 5,000 UNIT/0.5 ML SYRINGE SQ PRN; +HYDROmorphone 0.5 MG/0.5 ML SYRINGE IVP PRN; +LACTATED RINGERS 1,000 ML IV SCH; +LIDOCAINE 1% (10MG/ML) FOR IV START INTRADERMA PRN; +ONDANSETRON 4 MG/2 ML VIAL IVP ONE; +TAMSULOSIN 0.4 MG CAP.ER.24H PO PRN; +ceFAZolin 3 GM in SODIUM CHLORIDE 0.9% 100 ML IVPB PRN
[2021-03-13 10:08] LABS: Basophils # (A) 0.1 k/uL (0-0.2); Basophils % (A) 1 %; Eosinophils # (A) 0.2 k/uL (0-0.7); Eosinophils % (A) 3 %; HCT 46.2 % (39.0-53.0); HGB 15.1 gm/dL (13.0-17.5); Lymphocytes # (A) 1.1 k/uL (1.0-4.8); Lymphocytes % (A) 18 %; MCH 28.6 pg (25.0-35.0); MCHC 32.7 g/dL (31.0-37.0); MCV 87.6 fL (80.0-100.0); Mean Platelet Volume 7.9; Monocytes # (A) 0.5 k/uL (0-1.0); Monocytes % (A) 8 %; Neutrophils # (A) 4.2 k/uL (1.3-7.7); Neutrophils % (A) 68 %; Platelet Count 174 k/uL (150-450); RBC 5.27 m/uL (4.30-5.90); WBC 6.1 k/uL (3.8-10.6)
[2021-03-13 10:24] LABS: African American GFR (CKD) >90 (>60 ml/min/1.73 sqM); Anion Gap 7 mmol/L; Blood Urea Nitrogen 23 mg/dL (9-20); Calcium 8.8 mg/dL (8.4-10.2); Carbon Dioxide 26 mmol/L (22-30); Chloride 105 mmol/L (98-107); Glucose 96 mg/dL (74-99); Non-African American GFR(CKD) 78 (>60 ml/min/1.73 sqM); Potassium 3.6 mmol/L (3.5-5.1); Sodium 138 mmol/L (137-145)
[2021-03-13] MEDS ORDERED: ROCURONIUM 10 MG/ML (5 ML VIAL) IV ONE (11:25)
[2021-03-13] MEDS ORDERED: MIDAZOLAM 2 MG/2 ML VIAL ONE (11:25)
[2021-03-13] MEDS ORDERED: LIDOCAINE 1% INJ 10MG/ML (20 ML MDV) ONE (11:25)
[2021-03-13] MEDS ORDERED: PROPOFOL 10 MG/ML 20 ML VIAL IV ONE (11:25)
[2021-03-13] MEDS ORDERED: KETAMINE 10 MG/ML 20 ML VIAL ONE (11:25)
[2021-03-13] MEDS ORDERED: GLYCOPYRROLATE 0.2 MG/ML 2 ML VIAL ONE (11:25)
[2021-03-13] MEDS ORDERED: NEOSTIGMINE 1 MG/ML 10 ML VIAL ONE (11:25)
[2021-03-13] MEDS ORDERED: SUCCINYLCHOLINE CHLORIDE VIAL 200 MG/10 ML VIAL IV ONE (11:25)
[2021-03-13] MEDS ORDERED: HYDROmorphone (PF) 1 MG/ML ONE (11:25)
[2021-03-13] MEDS ORDERED: fentaNYL (PF) 50 MCG/ML 2 ML AMP ONE (11:25)
[2021-03-13] MEDS ORDERED: BUPIVACAIN-EPI 0.25%-1:200,000 30 ML VIAL SQ ONE (12:13)
[2021-03-13] MEDS ORDERED: LACTATED RINGERS 1,000 ML IV ONE (12:32)
[2021-03-13] MEDS ORDERED: oxyCODONE-APAP 10-325MG 1 EACH TAB PO PRN (13:27)
[2021-03-13 13:41] VITALS: TEMP 97
[2021-03-13 14:06] VITALS: RESP 18
[2021-03-13 15:47] VITALS: BP 119/75; PULSE 79
--- NOTE | 2021-03-13 16:37 | P.OP ---
Date of Procedure: 03/13/21 Description of Procedure: SURGEON: ADELE DE LOS SANTOS MD PREOPERATIVE DIAGNOSES: 1. Recurrent incisional ventral hernia 2. Right inguinal hernia 3. Morbid obesity due to excess calories, BMI 41.7 4. History of gastric bypass 5. Chronic atrial fibrillation 6. Obstructive sleep apnea 7. Chronic anticoagulation 8. Hypertensive heart disease with congestive heart failure 9. Depressive disorder 10. Hypothyroidism 11. Tobacco use POSTOPERATIVE DIAGNOSES: 1. Recurrent incisional ventral hernia with incarceration 3 x 1 cm, epigastrium 2. Right inguinal hernia 3. Morbid obesity due to excess calories, BMI 41.7 4. History of gastric bypass 5. Chronic atrial fibrillation 6. Obstructive sleep apnea 7. Chronic anticoagulation 8. Hypertensive heart disease with congestive heart failure 9. Depressive disorder 10. Hypothyroidism 11. Tobacco use 12. Severe intra-abdominal peritoneal adhesions 13. Diastases recti OPERATION: 1. Robotic-assisted daVinci Xi laparoscopic repair of recurrent incarcerated incisional ventral hernia 3 x 1 cm with fascial imbrication 3 without mesh 2. Robotic-assisted daVinci Xi laparoscopic extensive lysis of adhesions over 1 hour ANESTHESIA: General with local ESTIMATED BLOOD LOSS: 5 mL. SPECIMENS: None. COMPLICATIONS: None. Operative Findings: 1. Severe intra-abdominal adhesions involving upper midline 2. Incarcerated incisional hernia, 3 x 1 cm, vietnamese cheese defect 3. Extensive lysis of adhesions over 1 hour robotic-assisted approach, mesh repair prohibited given severe reaction to foreign body 4. Small bowel without obstruction 5. Adhesions right lower quadrant with obliteration of right inguinal hernia 6. Weak suprapubic floor, no identifiable obturator hernia 7. Lysis of adhesions right lower quadrant performed with prior history of appendectomy 8. Sigmoid colon with redundancy and risk of volvulus INDICATIONS: The patient is a 70-year-old male who presents with incisional ventral hernia of the upper abdomen from prior open gastric bypass including right inguinal hernia. Surgical intervention with laparoscopic versus robotic and open techniques were reviewed. Placement of mesh was also reviewed. Benefits and risks were thoroughly described. Informed consent was obtained. DESCRIPTION OF PROCEDURE: The patient was brought into the operating room and laid in supine position. After general induction, the abdomen had been prepped and draped in standard sterile fashion. Ioban draping was also placed. Prior to incision, a timeout protocol was confirmed with surgical team regarding the patient's name including procedures to be performed. The robot was primed prior to the procedure. A field block using local anesthetis was placed along hernia site including the proposed port sites. Initial incision was made with an #11 blade along the left upper quadrant. A 0 degree 5 mm laparoscopic trocar entry was performed. Diagnostic laparoscopy demonstrated severe peritoneal adhesions along the midline including redundant sigmoid colon with the risk of volvulus. Two 8 mm trocars were placed along the left lateral abdominal wall. The 5-mm port was exchanged for an 8 mm robotic port. Placements of the ports were 20 cm from the target anatomy and 10 cm apart. The da Nicole XI robot was previously primed, prepped and draped then docked along the right side of the patient. I then sat at the robot Da Nicole XI console where working arms of the robot including vessel sealer, suture needle tanker truck driver and graspers placed by the teacher's assistant. Adhesions along the midline were addressed sharply with vessel sealer with extensive lysis of adhesions over 1 hour without enterotomies. Careful inspection of the fascia confirmed 2 separate 1 cm hernia defects of the epigastrium with combined length of 3 cm transversely. Presence of diastases recti was confirmed. The hernia bordering fascia was cleaned of peritoneal fat. Next, hemostasis was checked. The hernia defect was oversewn using non-absorbable 2-0 VLOC with fascial imbrication 3. Mesh placement was avoided given the severe peritoneal adhesions and foreign body reaction to mesh. Attention was brought to the right lower quadrant for inspection of right groin. Moderate scarring obliterated the right inguinal hernia space with a natural tissue bed for hernia repair. The small bowel for his gastric bypass with investigated from the cecum to the terminal ileum including extended to the jejunojejunostomy. Moderate adhesions of the right lower quadrant and terminal ileum were lysed sharply. A final endoscopic imaging was obtained. All instruments and pneumoperitoneum were evacuated from the abdominal cavity. The da Nicole XI robot was undocked from the patient. I re-scrubbed into the case for closure of incisions. The incisions were reapproximated using 4-0 Monocryl in an interrupted subcuticular fashion. Liquid glue was applied to the skin. At the end of the procedure, needle, sponge, and instrument count had been verified correct by surgical appliances salesperson. The patient was taken to the postanesthesia care unit in stable condition with abdominal binder. Plan - Discharge Summary Discharge Rx Participant: Yes New Discharge Prescriptions: New Acetaminophen Tab [Tylenol Tab] 1,000 mg PO Q6HR PRN #30 tablet PRN Reason: Pain Tamsulosin [Flomax] 0.4 mg PO DAILY #7 cap Continue lisinopriL 40 mg PO QAM Venlafaxine HCl [Effexor] 150 mg PO QAM Levothyroxine Sodium [Synthroid] 75 mcg PO QAM amLODIPine [Norvasc] 10 mg PO QAM Potassium Chloride [Klor-Con 10 ER] 20 meq PO QAM Furosemide [Lasix] 40 mg PO QAM atenoloL 25 mg PO HS Apixaban [Eliquis] 5 mg PO BID C,E,Zinc,Copper 11/Jaceb2w/Lut [Ocuvite Adult 50 Plus Softgel] 1 cap PO DAILY Discharge Medication List Furosemide [Lasix] 40 mg PO QAM 02/23/20 [History] Levothyroxine Sodium [Synthroid] 75 mcg PO QAM 02/23/20 [History] Potassium Chloride [Klor-Con 10 ER] 20 meq PO QAM 02/23/20 [History] Venlafaxine HCl [Effexor] 150 mg PO QAM 02/23/20 [History] amLODIPine [Norvasc] 10 mg PO QAM 02/23/20 [History] lisinopriL 40 mg PO QAM 02/23/20 [History] Apixaban [Eliquis] 5 mg PO BID 09/09/20 [History] C,E,Zinc,Copper 11/Vnuov6z/Lut [Ocuvite Adult 50 Plus Softgel] 1 cap PO DAILY 09/09/20 [History] atenoloL 25 mg PO HS 09/09/20 [History] Acetaminophen Tab [Tylenol Tab] 1,000 mg PO Q6HR PRN #30 tablet 03/13/21 [Rx] Tamsulosin [Flomax] 0.4 mg PO DAILY #7 cap 03/13/21 [Rx] Follow up Appointment(s)/Referral(s): Adele De Los Santos MD [STAFF PHYSICIAN] - 03/18/21 3:30 pm Patient Instructions/Handouts: *Sur[facility] - (Anesthesia) Discharge Instructions Outpatient Surgery, Laparoscopic Herniorrhaphy (IP), Abdominal Binder (DC), Ventral Hernia Repair (GEN) Activity/Diet/Wound Care/Special Instructions: START BLOOD THINNER 03/15/21 No lifting for 4 pounds in 4 weeks, Apr 12August shower. Use antibacterial soap. August shower. No bathtub soaks for 2 weeks, Mar 27 Wear abdominal binder daily for comfort except for showering. Use ice along incisions for today to prevent swelling. Discharge Disposition: HOME SELF-CARE
== END 2021-03-13 14:15 | disposition home or self-care (01) ==
LOC: OR 08:48
PROVIDERS: ATTEND Surgery Plastic and Reconstructive Surgery
DX: K43.9 Ventral hernia without obstruction or gangrene (principal); I48.91 Unspecified atrial fibrillation; I10 Essential (primary) hypertension; K40.90 Unilateral inguinal hernia, without obstruction or gangrene, not specified as recurrent; M19.90 Unspecified osteoarthritis, unspecified site; F17.200 Nicotine dependence, unspecified, uncomplicated; G47.30 Sleep apnea, unspecified; Z79.01 Long term (current) use of anticoagulants; Z79.899 Other long term (current) drug therapy; Z83.3 Family history of diabetes mellitus; Z90.49 Acquired absence of other specified parts of digestive tract; Z96.653 Presence of artificial knee joint, bilateral; Z98.84 Bariatric surgery status
CPT/HCPCS: 80048; 85025; 49657; 49329; J2250; J0330; J1100; J2710; J0690; J2405; J2001; J3010; J1170; J2704; J1644

== ENCOUNTER → 2023-12-21 | Outpatient (CLI) | payer MEDICARE ==
[2023-12-21 14:36] VITALS: BP 111/65; PULSE 72; RESP 16; TEMP 98.1
--- NOTE | 2023-12-21 15:44 | P.SLEEP ---
History of Present Illness H&P Date: 12/21/23 Chief Complaint: MARCIE 73-year-old male patient, noted to have obstructive sleep apnea, coming in to discuss further options regarding his MARCIE treatment and he is interested in the inspire hypoglossal nerve stimulation therapy. In summary, the patient has been diagnosed having obstructive sleep apnea many years back. He has gone through multiple machines and the patient is currently using a [employer] FinanceStation 2, APAP mode pressures of 5/12 cm of water. Based on his compliance data from his machine, the patient is utilizing the machine on average of 5 hours and 46 minutes with a 90th percentile pressure being at 8.4 and an AHI down to 6.5. His current body mass index is 41. He is using a Steel fx nasal pillows. No recent weight gain or weight loss. He does not have congestion heart failure with diastolic heart failure. He is also known to have chronic A-fib, hypertension and BPH. While on treatment, no significant snoring and his current [place] score is down to 8. No major hypersomnia or sleepiness during day-to-day activities. No shortness of breath. No morning headaches. No nighttime heartburn or dyspnea or chest pain. Review of Systems Constitutional: Reports daytime sleepiness, Reports fatigue Eyes: denies as per HPI, denies blurred vision, denies bulging eye, denies decreased vision, denies diplopia, denies discharge, denies dry eye, denies irritation, denies itching, denies pain, denies photophobia, denies loss of peripheral vision, denies loss of vision, denies tunnel vision/blind spots Ears: deny: decreased hearing, ear discharge, earache, tinnitus Ears, nose, mouth and throat: Reports as per HPI Breasts: absent: as per HPI, gynecomastia Cardiovascular: Reports irregular heart beat Respiratory: Reports as per HPI, Reports sleep apnea, Reports snoring Gastrointestinal: Reports as per HPI Genitourinary: Reports as per HPI Musculoskeletal: Reports as per HPI Musculoskeletal: absent: ankle pain, ankle stiffness, ankle swelling, as per HPI, elbow pain, elbow stiffness, elbow swelling, foot pain, foot stiffness, foot swelling, hand pain, hand stiffness, hand swelling, hip pain, hip stiffness, hip swelling, knee pain, knee stiffness, knee swelling, shoulder pain, shoulder stiffness, shoulder swelling, wrist pain, wrist stiffness, wrist swelling Integumentary: Reports as per HPI Neurological: Reports as per HPI Psychiatric: Reports as per HPI Endocrine: Reports fatigue Hematologic/Lymphatic: Reports as per HPI Allergic/Immunologic: Reports as per HPI Past Medical History Past Medical History: Atrial Fibrillation, Heart Failure, Hypertension, Os teoarthritis (OA), Sleep Apnea/CPAP/BIPAP, Thyroid Disorder Additional Past Medical History / Comment(s): HAD COVID 2020, abdominal cramps, History of Any Multi-Drug Resistant Organisms: None Reported Past Surgical History: Appendectomy, Bariatric Surgery, Joint Replacement, Orthopedic Surgery Additional Past Surgical History / Comment(s): Bilateral knee replacements(Rt x 3). GASTRIC BYPASS (DONE IN [place] ABOUT 20YRS), arthroscopy rt knee Past Anesthesia/Blood Transfusion Reactions: No Reported Reaction Past Psychological History: Depression Smoking Status: Current some day smoker Past Alcohol Use History: Occasional Additional Past Alcohol Use History / Comment(s): OCCASIONAL CIGAR, since 4 yrs ago Past Drug Use History: None Reported - Past Family History Mother Family Medical History: Diabetes Mellitus Father Family Medical History: Cancer Medications and Allergies Home Medications Medication Instructions Recorded Confirmed Type Furosemide [Lasix] 40 mg PO QAM 02/23/20 03/12/21 History Levothyroxine Sodium [Synthroid] 75 mcg PO QAM 02/23/20 12/21/23 History Potassium Chloride [Klor-Con 10 ER] 20 meq PO QAM 02/23/20 12/21/23 History Venlafaxine HCl [Effexor] 150 mg PO QAM 02/23/20 12/21/23 History amLODIPine [Norvasc] 10 mg PO QAM 02/23/20 03/12/21 History lisinopriL 40 mg PO QAM 02/23/20 03/12/21 History Apixaban [Eliquis] 5 mg PO BID 09/09/20 12/21/23 History C,E,Zinc,Copper 11/Rzhrn0i/Lut 1 cap PO DAILY 09/09/20 03/12/21 History [Ocuvite Adult 50 Plus Softgel] atenoloL 25 mg PO HS 09/09/20 03/12/21 History Acetaminophen Tab [Tylenol Tab] 1,000 mg PO Q6HR PRN #30 tablet 03/13/21 Rx Tamsulosin [Flomax] 0.4 mg PO DAILY #7 cap 03/13/21 12/21/23 Rx Apixaban [Eliquis] 5 mg PO DAILY 12/21/23 12/21/23 History Atorvastatin [Lipitor] 40 mg PO DAILY 12/21/23 12/21/23 History Escitalopram [Lexapro] 10 mg PO DAILY 12/21/23 12/21/23 History Ferrous Sulfate [Feosol] 325 mg PO DAILY 12/21/23 12/21/23 History Furosemide [Lasix] 40 mg PO DAILY 12/21/23 12/21/23 History Losartan [Cozaar] 50 mg PO DAILY 12/21/23 12/21/23 History Venlafaxine HCl [Effexor XR] 150 mg PO DAILY 12/21/23 12/21/23 History Venlafaxine HCl [Effexor XR] 225 mg PO DAILY 12/21/23 12/21/23 History amLODIPine [Norvasc] 10 mg PO DAILY 12/21/23 12/21/23 History Allergies Allergy/AdvReac Type Severity Reaction Status Date / Time No Known Allergies Allergy Verified 03/13/21 09:23 Physical Exam Vitals: Vital Signs Temp Pulse Resp BP Pulse Ox 12/21/23 14:34 98.1 F 72 16 111/65 98 Patient is calm and comfortable, body mass index of 41.0. Pulse ox on room air is 98% The patient appeared well nourished and normally developed. Vital signs as documented. Head exam is unremarkable. No scleral icterus or corneal arcus noted. Neck is without jugular venous distension, thyromegaly, or carotid bruits. Carotid upstrokes are brisk bilaterally. Lungs are clear to auscultation and percussion. Cardiac exam reveals the PMI to be normally sized and situated. Rhythm is irregular consistent with atrial fibrillation.. First and second heart sounds normal. No murmurs, rubs or gallops. Abdominal exam reveals normal bowel sounds, no masses, no organomegaly and no aortic enlargement. Extremities are nonedematous and both femoral and pedal pulses are normal. Examination of the skin revealed no evidence of significant rashes, suspicious appearing nevi or other concerning lesions. Neurologically, the patient is awake and alert and the patient does not have any focal neurological deficit. Cranial nerves are essentially intact. Assessment and Plan Plan: Obstructive sleep apnea, baseline AHI is not known. The patient has been successfully treated with a CPAP unit which she has and the patient is utilizing a DreamStation 2, APAP mode pressures of 6/12 cm of water. Compliance to check was done today. Obesity with a body mass index of 41 Chronic A-fib CAD Nonischemic cardiomyopathy with diastolic heart failure Hypertension Hypothyroidism BPH Plan I had a lengthy discussion with the patient. I went over the criteria patient selection for inspire/hypoglossal nerve stimulation therapy. Obviously, the way things are going, the patient is tolerating his current CPAP treatment and he is successfully treated and his AHI is down to 6.5 while being on therapy. I am going to do some modification on his mask interface. I offered him the dream where nasal pillow medium size which she felt quite comfortable. On a separate note, the patient does not fit the criteria for inspire therapy as the patient is tolerant to CPAP for the time being and at the same time his body mass index will automatically disqualify him for this treatment. He needs to have a body mass index of less than 35, preferably less than 32 and he is able to achieve this body mass index, the patient will need a reevaluation with a home study to reevaluate the presence and severity of sleep apnea and decide accordingly if this is something that he would like to pursue in the future. For the time being, I am quite confident that the patient is going to continue his CPAP with a modifications was done on his mask interface. He is going to work on losing weight. Will see him back in 3 months time in the office for further follow-up. Sleep Note - Sleep Data ESS Total: 8 - Sleep Note Sleep Note: Temperature: 98.1 F Pulse Rate: 72 Respiratory Rate: 16 Blood Pressure: 111/65 SpO2: 98 Height: Weight: BMI: Neck Circumference: 19
== END ==
LOC: 3 N SLEEP 13:24
PROVIDERS: ATTEND Internal Medicine Critical Care Medicine
CPT/HCPCS: 99211